=== PATIENT | male | born 1995 | race Caucasian/White ===

== ENCOUNTER 2019-09-06 11:18 | Observation (INO) | payer BC ==
--- NOTE | 2019-09-06 11:57 | EDM.PDOC ---
ED HPI GENERAL MEDICAL PROBLEM - General Chief Complaint: Chest Pain Stated Complaint: POSS A-FIB Time Seen by Provider: 09/06/19 11:21 Source of Information: Reports: Patient History Limitations: Reports: No Limitations - History of Present Illness INITIAL COMMENTS - FREE TEXT/NARRATIVE: TRIAGE NOTE -- Chest pain, pressure/squeezing, dizzyness, Hx of HTN. Pt arrived fom [facility]. Was informed that that he may have Afib fom them. Symptoms started about 30 minutes ago. Patient has had trouble from time to time with chest pain or discomfort. He says this has been for the last 3 months or so but details are quite hazy. This morning he was sitting quietly when the pain started. It was not associated with radiation, shortness of breath, or sweating but he did stand up and felt like he was going to pass out. He went to the clinic but it is not clear that his symptoms took him there. He said he went to get his antihypertensives refilled. History is not real focused per patient as to just why he went to the clinic. Patient was apparently sent directly here from the clinic. There has been no intervention prior to arrival. He is comfortable on exam. Risk factors would include cigarette smoking and hypertension. He is on 3 antihypertensives. It is not clear to him why he has this kind of hypertension. Apparently a primary care physician has put him on these antihypertensives and he has not had a cardiology work-up. Middle Anterior Chest Pain Score (Numeric/FACES): 6 - Related Data Allergies Allergy/AdvReac Type Severity Reaction Status Date / Time No Known Allergies Allergy Verified 09/06/19 11:33 Home Meds: Home Meds Lisinopril/Hydrochlorothiazide [Lisinopril-Hctz 20-25 mg Tab] 20 mg PO DAILY [History] Metoprolol Succinate 25 mg PO 09/06/19 [History] Propranolol HCl 10 mg PO 09/06/19 [History] Past Medical History HEENT History: Reports: None Cardiovascular History: Reports: Hypertension Respiratory History: Reports: None Gastrointestinal History: Reports: None Genitourinary History: Reports: None Musculoskeletal History: Reports: None Neurological History: Reports: None Psychiatric History: Reports: Anxiety Endocrine/Metabolic History: Reports: None Hematologic History: Reports: None Immunologic History: Reports: None Oncologic (Cancer) History: Reports: None Dermatologic History: Reports: None - Past Surgical History Head Surgeries/Procedures: Reports: None Social & Family History - Tobacco Use Smoking Status *Q: Current Every Day Smoker Years of Tobacco use: 7 Packs/Tins Daily: 0.5 - Caffeine Use Caffeine Use: Reports: Coffee - Recreational Drug Use Recreational Drug Use: No ED ROS GENERAL - Review of Systems Review Of Systems: Comprehensive ROS is negative, except as noted in HPI. ED EXAM, GENERAL - Physical Exam Exam: See Below Exam Limited By: No Limitations General Appearance: Alert, WD/WN, No Apparent Distress Eye Exam: Bilateral Eye: EOMI, PERRL Ears: Normal External Exam Nose: Normal Inspection Throat/Mouth: Normal Inspection Head: Atraumatic, Normocephalic Neck: Normal Inspection, Supple Respiratory/Chest: No Respiratory Distress, Lungs Clear, Normal Breath Sounds Cardiovascular: Tachycardia GI/Abdominal: Soft, Non-Tender Back Exam: Normal Inspection Extremities: Normal Inspection, Non-Tender, No Pedal Edema Neurological: Alert, Oriented, Normal Cognition Psychiatric: Normal Affect, Normal Mood Skin Exam: Warm, Dry Course - Vital Signs Last Recorded V/S: Last Vital Signs Temp 37.3 C 09/06/19 11:28 Pulse 121 H 09/06/19 11:28 Resp 15 09/06/19 11:28 BP 147/76 H 09/06/19 11:28 Pulse Ox Orthostatic Blood Pressure [ 130/76 Standing] Orthostatic Blood Pressure [ 136/76 Sitting] Orthostatic Blood Pressure [ 126/64 Supine] - Orders/Labs/Meds Orders: Active Orders 24 hr Category Date Time Status EKG Documentation Completion [RC] STAT Care 09/06/19 11:38 Active Orthostatic Vital Signs [RC] ASDIRECTED Care 09/06/19 13:39 Ordered Labs: Laboratory Tests 09/06/19 09/06/19 09/06/19 Range/Units 11:45 11:57 11:57 WBC 9.34 H (4.23-9.07) K/mm3 RBC 5.15 (4.63-6.08) M/mm3 Hgb 14.5 (13.7-17.5) gm/dl Hct 43.5 (40.1-51.0) % MCV 84.5 (79.0-92.2) fl MCH 28.2 (25.7-32.2) pg MCHC 33.3 (32.2-35.5) g/dl RDW Std Deviation 41.4 (35.1-43.9) fL Plt Count 244 (163-337) K/mm3 MPV 10.5 (9.4-12.3) fl Neutrophils % (Manual) 53 (40-60) % Band Neutrophils % 0 (0-10) % Lymphocytes % (Manual) 33 (20-40) % Atypical Lymphs % 0 % Monocytes % (Manual) 11 H (2-10) % Eosinophils % (Manual) 3 (0.8-7.0) % Basophils % (Manual) 0 L (0.2-1.2) Platelet Estimate Adequate RBC Morph Comment Normal PT 10.4 (9.7-12.0) SECONDS INR 0.95 APTT (22-31) SECONDS Sodium (136-145) mEq/L Potassium (3.5-5.1) mEq/L Chloride (98-107) mEq/L Carbon Dioxide (21-32) mEq/L Anion Gap (5-15) BUN (7-18) mg/dL Creatinine (0.7-1.3) mg/dL Est Cr Clr Drug Dosing mL/min Estimated GFR (MDRD) (>60) mL/min BUN/Creatinine Ratio (14-18) Glucose (74-106) mg/dL Calcium (8.5-10.1) mg/dL Phosphorus (2.6-4.7) mg/dL Magnesium (1.8-2.4) mg/dl Total Bilirubin (0.2-1.0) mg/dL AST (15-37) U/L ALT (16-63) U/L Alkaline Phosphatase (46-116) U/L Troponin I (0.00-0.056) ng/mL Total Protein (6.4-8.2) g/dl Albumin (3.4-5.0) g/dl Globulin gm/dL Albumin/Globulin Ratio (1-2) TSH 3rd Generation (0.358-3.74) uIU/mL Urine Opiates Screen Negative (IBTOOP=955) Ur Buprenorphine Scrn Negative (CUTOFF=10) Ur Oxycodone Screen Negative (AGJ2BW=709) Urine Methadone Screen Negative (DTB3QR=520) Ur Propoxyphene Screen Negative (ZQZUVC=676) Ur Barbiturates Screen Negative (CFJOYD=487) Ur Tricyclics Screen Negative (QMWJBP=278) Ur Phencyclidine Scrn Negative (CUTOFF=25) Ur Amphetamine Screen Negative (JCNAHU=582) U Methamphetamines Scrn Negative (XZAYEI=537) U Benzodiazepines Scrn Negative (IIDNNY=302) U Cocaine Metab Screen Negative (NRIZVS=302) U Marijuana (THC) Screen Negative (CUTOFF=50) 09/06/19 09/06/19 09/06/19 Range/Units 11:57 11:57 11:57 WBC (4.23-9.07) K/mm3 RBC (4.63-6.08) M/mm3 Hgb (13.7-17.5) gm/dl Hct (40.1-51.0) % MCV (79.0-92.2) fl MCH (25.7-32.2) pg MCHC (32.2-35.5) g/dl RDW Std Deviation (35.1-43.9) fL Plt Count (163-337) K/mm3 MPV (9.4-12.3) fl Neutrophils % (Manual) (40-60) % Band Neutrophils % (0-10) % Lymphocytes % (Manual) (20-40) % Atypical Lymphs % % Monocytes % (Manual) (2-10) % Eosinophils % (Manual) (0.8-7.0) % Basophils % (Manual) (0.2-1.2) Platelet Estimate RBC Morph Comment PT (9.7-12.0) SECONDS INR APTT 27 (22-31) SECONDS Sodium 143 (136-145) mEq/L Potassium 3.6 (3.5-5.1) mEq/L Chloride 104 (98-107) mEq/L Carbon Dioxide 26 (21-32) mEq/L Anion Gap 16.6 H (5-15) BUN 17 (7-18) mg/dL Creatinine 0.8 (0.7-1.3) mg/dL Est Cr Clr Drug Dosing 151.65 mL/min Estimated GFR (MDRD) > 60 (>60) mL/min BUN/Creatinine Ratio 21.3 H (14-18) Glucose 121 H (74-106) mg/dL Calcium 9.0 (8.5-10.1) mg/dL Phosphorus 3.4 (2.6-4.7) mg/dL Magnesium 1.6 L (1.8-2.4) mg/dl Total Bilirubin 0.3 (0.2-1.0) mg/dL AST 21 (15-37) U/L ALT 38 (16-63) U/L Alkaline Phosphatase 101 (46-116) U/L Troponin I < 0.017 (0.00-0.056) ng/mL Total Protein 7.4 (6.4-8.2) g/dl Albumin 4.0 (3.4-5.0) g/dl Globulin 3.4 gm/dL Albumin/Globulin Ratio 1.2 (1-2) TSH 3rd Generation 1.284 (0.358-3.74) uIU/mL Urine Opiates Screen (POSWMQ=807) Ur Buprenorphine Scrn (CUTOFF=10) Ur Oxycodone Screen (XEO5JC=531) Urine Methadone Screen (QYE3DP=240) Ur Propoxyphene Screen (AKYEYL=507) Ur Barbiturates Screen (NZSXGF=673) Ur Tricyclics Screen (XVBXEW=842) Ur Phencyclidine Scrn (CUTOFF=25) Ur Amphetamine Screen (FMAYOZ=303) U Methamphetamines Scrn (ZBMTBJ=137) U Benzodiazepines Scrn (LTFTCG=841) U Cocaine Metab Screen (PGZYIN=748) U Marijuana (THC) Screen (CUTOFF=50) - Re-Assessments/Exams Free Text/Narrative Re-Assessment/Exam: 09/06/19 13:36 The patient has been evaluated in the emergency department for his chest pain near syncope and tachycardia. There is no explanation for his hypertension at his early age. Laboratory evaluation is unremarkable. EKG without acute change. Chest x-ray is negative. Thyroid is normal. Drug screen is negative. The patient needs to be observed in the hospital on telemetry to be sorted out. Discussed with Dr. Rosales who will be admitting him in observation status to the hospitalist service. 09/06/19 13:40 Orthostatic blood pressures have been ordered and are being done at the time of transfer. Departure - Departure Time of Disposition: 13:37 Disposition: Refer to Observation Condition: Good Clinical Impression: Sinus tachycardia, Near syncope Chest pain Qualifiers: Chest pain type: unspecified Qualified Code(s): R07.9 - Chest pain, unspecified Hypertension Qualifiers: Hypertension type: unspecified Qualified Code(s): I10 - Essential (primary) hypertension Referrals: PCP,None [Primary Care Provider] - Forms: ED Department Discharge Sepsis Event Note - Evaluation Sepsis Screening Result: No Definite Risk - Focused Exam Vital Signs: Vital Signs Temp Pulse Resp BP 09/06/19 11:28 37.3 C 121 H 15 147/76 H Date Exam was Performed: 09/06/19 Time Exam was Performed: 13:40 - My Orders Last 24 Hours: My Active Orders 09/06/19 11:38 EKG Documentation Completion [RC] STAT 09/06/19 13:39 Orthostatic Vital Signs [RC] ASDIRECTED - Assessment/Plan Last 24 Hours: My Active Orders 09/06/19 11:38 EKG Documentation Completion [RC] STAT 09/06/19 13:39 Orthostatic Vital Signs [RC] ASDIRECTED
--- NOTE | 2019-09-06 12:02 | CR ---
Chest: Portable view of the chest was obtained. Comparison: No prior chest imaging is available. Heart size and mediastinum are normal. Lungs are clear with no acute parenchymal change. Bony structures are grossly intact. Impression: 1. Nothing acute is appreciated on portable chest x-ray. Diagnostic code #1 This report was dictated in MDT
[2019-09-06] MEDS ORDERED: Sodium Chloride 0.9% 10 ML Syringe FLUSH PRN (14:06)
[2019-09-06] MEDS ORDERED: Ondansetron 4 MG/2 ML SDV IV PRN (14:06)
--- NOTE | 2019-09-06 14:06 | PCM.HP.2 ---
H&P History of Present Illness - General Date of Service: 09/06/19 Source of Information: Patient, Old Records, Provider, RN, RN Notes Reviewed History Limitations: Reports: No Limitations - History of Present Illness Initial Comments - Free Text/Narative: Andrea Ferraro is a 23 yo male who presented to ED on 09/06/2019 with reports of chest pain, pressure/squeezing, dizziness, and possible A. fib. Patient has a history of resistant hypertension and reports that he has had A. fib in the past. He was seen at the [facility] and sent here. He reports he has had occasional chest pain on and off for some time. Reports on this instance he was sitting at home and it suddenly started. Denies any radiation, shortness of breath, or sweating. States that he attempted to get up but then felt like he was going to pass out and sat back down. Home medications include propranolol, metoprolol succinate, and lisinopril. He states that he was prescribed these by [place]. Denies any prior cardiology work-up. In the ED temp was 37.3 Celsius. Pulse 121. Respirations 15. Blood pressure 147/76. Orthostatic vital signs were negative. Labs were gained and CBC was grossly unremarkable with a WBC of 9.34. PT was 10.4 and INR 0.95. Urine drug screen was negative. aPTT was 27. Sodium 143. Potassium on the low end of normal at 3.6. Anion gap was slightly high at 16.6. BUN 17. Creatinine 0.8. GFR greater than 60. Glucose was elevated at 121. Phosphorus was 3.4. Magnesium was low at 1.6. AST was 21, ALT 37, alk phos 101. Troponin was negative at less than 0.017. Protein was 7.4. TSH was 1.284. EKG was obtained showed no signs of ischemia. Chest x-ray was normal. A history of hypertension, prior A. fib, anxiety, and daily half pack nicotine use. He does not have a primary care provider locally. He subsequently admitted to the medical floor observation status for further work-up of his resistant hypertension, tachycardia, presyncopal episode, and reported possible prior A. fib. Middle Anterior Chest Pain Score (Numeric/FACES): 6 - Related Data Allergies/Adverse Reactions: Allergies Allergy/AdvReac Type Severity Reaction Status Date / Time No Known Allergies Allergy Verified 09/06/19 15:33 Home Medications: Home Meds Metoprolol Succinate 50 mg PO DAILY 09/06/19 [History] Propranolol HCl [Propranolol] 60 mg PO DAILY 09/06/19 [History] lisinopriL [Lisinopril] 20 mg PO DAILY 09/06/19 [History] Past Medical History HEENT History: Reports: None Cardiovascular History: Reports: Hypertension Respiratory History: Reports: None Gastrointestinal History: Reports: None Genitourinary History: Reports: None Musculoskeletal History: Reports: None Neurological History: Reports: None Psychiatric History: Reports: Anxiety Endocrine/Metabolic History: Reports: None Hematologic History: Reports: None Immunologic History: Reports: None Oncologic (Cancer) History: Reports: None Dermatologic History: Reports: None - Past Surgical History Head Surgeries/Procedures: Reports: None Social & Family History - Tobacco Use Smoking Status *Q: Current Every Day Smoker Years of Tobacco use: 7 Packs/Tins Daily: 0.5 - Caffeine Use Caffeine Use: Reports: Coffee - Recreational Drug Use Recreational Drug Use: No H&P Review of Systems - Review of Systems: Review Of Systems: See Below General: Reports: No Symptoms. Denies: Fever, Chills, Malaise, Weakness, Fatigue HEENT: Reports: No Symptoms. Denies: Headaches, Sore Throat Pulmonary: Reports: No Symptoms. Denies: Shortness of Breath, Wheezing, Pleuritic Chest Pain, Cough, Sputum Cardiovascular: Reports: Blood Pressure Problem (longstanding ). Denies: Chest Pain, Palpitations, Dyspnea on Exertion, Edema, Lightheadedness, Syncope Gastrointestinal: Reports: No Symptoms. Denies: Abdominal Pain, Constipation, Diarrhea, Nausea, Vomiting Genitourinary: Reports: No Symptoms. Denies: Pain Musculoskeletal: Reports: No Symptoms Skin: Reports: No Symptoms. Denies: Cyanosis Psychiatric: Reports: No Symptoms. Denies: Confusion Neurological: Reports: Numbness (hands and feet ), Tingling (hands and feet ). Denies: Confusion, Dizziness, Headache, Pre-Existing Deficit, Seizure, Syncope, Tremors, Trouble Speaking, Difficulty Walking, Weakness, Change in Speech, Gait Disturbance Hematologic/Lymphatic: Reports: No Symptoms. Denies: Anemia Immunologic: Reports: No Symptoms Exam - Exam Exam: See Below - Vital Signs Vital Signs: Last Vital Signs Temp 99.1 F 09/06/19 11:28 Pulse 121 H 09/06/19 11:28 Resp 15 09/06/19 11:28 BP 147/76 H 09/06/19 11:28 Pulse Ox Orthostatic Blood Pressure [ 130/76 Standing] Orthostatic Blood Pressure [ 136/76 Sitting] Orthostatic Blood Pressure [ 126/64 Supine] Weight: 202 lb - Exam General: Alert, Oriented, Cooperative. No: Mild Distress HEENT: Conjunctiva Clear, EACs Clear, Hearing Intact, Mucosa Moist & [place], Posterior Pharynx Clear Neck: Supple, Trachea Midline Lungs: Clear to Auscultation, Normal Respiratory Effort Cardiovascular: Regular Rate, Regular Rhythm GI/Abdominal Exam: Normal Bowel Sounds, Soft, Non-Tender, No Distention (Male) Exam: Deferred Rectal (Males) Exam: Deferred Back Exam: Normal Inspection, Full Range of Motion Extremities: Normal Inspection, Normal Range of Motion, Non-Tender, No Pedal Edema, Normal Capillary Refill Skin: Warm, Dry, Intact Neurological: Cranial Nerves Intact (grossly ) Neuro Extensive - Mental Status: Alert, Oriented x3, Normal Mood/Affect Psychiatric: Alert, Normal Affect, Normal Mood - Patient Data Lab Results Last 24 hrs: Laboratory Results - last 24 hr 09/06/19 09/06/19 09/06/19 Range/Units 11:45 11:57 11:57 WBC 9.34 H (4.23-9.07) K/mm3 RBC 5.15 (4.63-6.08) M/mm3 Hgb 14.5 (13.7-17.5) gm/dl Hct 43.5 (40.1-51.0) % MCV 84.5 (79.0-92.2) fl MCH 28.2 (25.7-32.2) pg MCHC 33.3 (32.2-35.5) g/dl RDW Std Deviation 41.4 (35.1-43.9) fL Plt Count 244 (163-337) K/mm3 MPV 10.5 (9.4-12.3) fl Neutrophils % (Manual) 53 (40-60) % Band Neutrophils % 0 (0-10) % Lymphocytes % (Manual) 33 (20-40) % Atypical Lymphs % 0 % Monocytes % (Manual) 11 H (2-10) % Eosinophils % (Manual) 3 (0.8-7.0) % Basophils % (Manual) 0 L (0.2-1.2) Platelet Estimate Adequate RBC Morph Comment Normal PT 10.4 (9.7-12.0) SECONDS INR 0.95 APTT (22-31) SECONDS Sodium (136-145) mEq/L Potassium (3.5-5.1) mEq/L Chloride (98-107) mEq/L Carbon Dioxide (21-32) mEq/L Anion Gap (5-15) BUN (7-18) mg/dL Creatinine (0.7-1.3) mg/dL Est Cr Clr Drug Dosing mL/min Estimated GFR (MDRD) (>60) mL/min BUN/Creatinine Ratio (14-18) Glucose (74-106) mg/dL Calcium (8.5-10.1) mg/dL Phosphorus (2.6-4.7) mg/dL Magnesium (1.8-2.4) mg/dl Total Bilirubin (0.2-1.0) mg/dL AST (15-37) U/L ALT (16-63) U/L Alkaline Phosphatase (46-116) U/L Troponin I (0.00-0.056) ng/mL Total Protein (6.4-8.2) g/dl Albumin (3.4-5.0) g/dl Globulin gm/dL Albumin/Globulin Ratio (1-2) TSH 3rd Generation (0.358-3.74) uIU/mL Urine Opiates Screen Negative (HOQKXF=299) Ur Buprenorphine Scrn Negative (CUTOFF=10) Ur Oxycodone Screen Negative (NWO9GB=697) Urine Methadone Screen Negative (TSA0UZ=323) Ur Propoxyphene Screen Negative (GXJTEU=480) Ur Barbiturates Screen Negative (FQLOEZ=978) Ur Tricyclics Screen Negative (UBEVRJ=583) Ur Phencyclidine Scrn Negative (CUTOFF=25) Ur Amphetamine Screen Negative (AFTYAC=213) U Methamphetamines Scrn Negative (YALCLF=762) U Benzodiazepines Scrn Negative (XNMBFM=133) U Cocaine Metab Screen Negative (UXRABQ=189) U Marijuana (THC) Screen Negative (CUTOFF=50) 09/06/19 09/06/19 09/06/19 Range/Units 11:57 11:57 11:57 WBC (4.23-9.07) K/mm3 RBC (4.63-6.08) M/mm3 Hgb (13.7-17.5) gm/dl Hct (40.1-51.0) % MCV (79.0-92.2) fl MCH (25.7-32.2) pg MCHC (32.2-35.5) g/dl RDW Std Deviation (35.1-43.9) fL Plt Count (163-337) K/mm3 MPV (9.4-12.3) fl Neutrophils % (Manual) (40-60) % Band Neutrophils % (0-10) % Lymphocytes % (Manual) (20-40) % Atypical Lymphs % % Monocytes % (Manual) (2-10) % Eosinophils % (Manual) (0.8-7.0) % Basophils % (Manual) (0.2-1.2) Platelet Estimate RBC Morph Comment PT (9.7-12.0) SECONDS INR APTT 27 (22-31) SECONDS Sodium 143 (136-145) mEq/L Potassium 3.6 (3.5-5.1) mEq/L Chloride 104 (98-107) mEq/L Carbon Dioxide 26 (21-32) mEq/L Anion Gap 16.6 H (5-15) BUN 17 (7-18) mg/dL Creatinine 0.8 (0.7-1.3) mg/dL Est Cr Clr Drug Dosing 151.65 mL/min Estimated GFR (MDRD) > 60 (>60) mL/min BUN/Creatinine Ratio 21.3 H (14-18) Glucose 121 H (74-106) mg/dL Calcium 9.0 (8.5-10.1) mg/dL Phosphorus 3.4 (2.6-4.7) mg/dL Magnesium 1.6 L (1.8-2.4) mg/dl Total Bilirubin 0.3 (0.2-1.0) mg/dL AST 21 (15-37) U/L ALT 38 (16-63) U/L Alkaline Phosphatase 101 (46-116) U/L Troponin I < 0.017 (0.00-0.056) ng/mL Total Protein 7.4 (6.4-8.2) g/dl Albumin 4.0 (3.4-5.0) g/dl Globulin 3.4 gm/dL Albumin/Globulin Ratio 1.2 (1-2) TSH 3rd Generation 1.284 (0.358-3.74) uIU/mL Urine Opiates Screen (YVLRQV=294) Ur Buprenorphine Scrn (CUTOFF=10) Ur Oxycodone Screen (MOZ9ZX=400) Urine Methadone Screen (DLH3YR=497) Ur Propoxyphene Screen (BVAQGP=054) Ur Barbiturates Screen (ZYZSTP=611) Ur Tricyclics Screen (JNFHOK=030) Ur Phencyclidine Scrn (CUTOFF=25) Ur Amphetamine Screen (BGWFTN=079) U Methamphetamines Scrn (LFCYCP=063) U Benzodiazepines Scrn (UFCERY=350) U Cocaine Metab Screen (EDIHYM=377) U Marijuana (THC) Screen (CUTOFF=50) Result Diagrams: 09/07/19 04:42 09/07/19 04:42 Sepsis Event Note - Evaluation Sepsis Screening Result: No Definite Risk - Focused Exam Vital Signs: Vital Signs Temp Pulse Resp BP 09/06/19 11:28 99.1 F 121 H 15 147/76 H Date Exam was Performed: 09/07/19 Time Exam was Performed: 07:51 - Problem List (1) History of atrial fibrillation SNOMED Code(s): 217545411 ICD Code: Z86.79 - PERSONAL HISTORY OF OTHER DISEASES OF THE CIRCULATORY SYSTEM Status: Chronic Priority: High Current Visit: Yes (2) Resistant hypertension SNOMED Code(s): 72403085 ICD Code: I10 - ESSENTIAL (PRIMARY) HYPERTENSION Status: Chronic Priority : High Current Visit: Yes (3) Current nicotine use SNOMED Code(s): 178552030 ICD Code: Z72.0 - TOBACCO USE Status: Chronic Priority: Medium Current Visit: Yes (4) Anxiety SNOMED Code(s): 39148758 ICD Code: F41.9 - ANXIETY DISORDER, UNSPECIFIED Status: Chronic Priority : Medium Current Visit: No (5) Chest pain SNOMED Code(s): 38353843 ICD Code: R07.9 - CHEST PAIN, UNSPECIFIED Status: Resolved Priority: Medium Current Visit: Yes Qualifiers: Chest pain type: unspecified Qualified Code(s): R07.9 - Chest pain, unspecified (6) Near syncope SNOMED Code(s): 912616022 ICD Code: R55 - SYNCOPE AND COLLAPSE Status: Acute Priority: High Current Visit: Yes (7) Hypomagnesemia SNOMED Code(s): 921669534 ICD Code: E83.42 - HYPOMAGNESEMIA Status: Acute Priority: High Current Visit: Yes Problem List Initiated/Reviewed/Updated: Yes Orders Last 24hrs: Active Orders 24 hr Category Date Time Status EKG Documentation Completion [RC] STAT Care 09/06/19 11:38 Active Orthostatic Vital Signs [RC] ASDIRECTED Care 09/06/19 13:39 Active Assessment/Plan Comment:: History of atrial fibrillation Chest pain Near syncope Resistant hypertension Hypomagnesemia Presented to ED with chest pain and suspected A-fib, near syncope Reports history of A-fib but unable to provide details On Metoprolol succinate, propranolol, lisinopril Unsure why on 2 beta blockers NSR on ED 12-lead EKG BP stable in ED Asymptomatic when brought to floor PLAN - Attempt to obtain old records - Telemetry to monitor for arrhythmias - Supplement magnesium and monitor electrolytes - Hold propranolol, switch metoprolol to tartrate and give 12.5mg BID, Give lisinopril in PM - Urine 24 hr metanephrines, Creatinine, sodium, aldosterone, aldosterone/renin ratio, catecholamines, a.m. plasma renin activity - NPO after midnight - Renal artery ultrasound - Echocardiogram - Monitor vital signs - Will need to establish PCP locally Current nicotine use 1/2 pack a day smoker PLAN - Nicotine patch - Cessation counseling Anxiety Not on any medications PLAN -Monitor DVT Prophylaxis: Ambulate (VTE score of 1) GI Prophylaxis: Not indicated CODE STATUS: Full Code PCP: None - will need to establish DISPOSITION: Admitted to medical floor on telemetry for presyncopal work-up and work-up for resistant hypertension. Anticipated length of stay less than 2 overnights. - Mortality Measure Prognosis:: Good
[2019-09-06] MEDS ORDERED: Magnesium Sulfate/Water 2 GM in Premix Bag 1 BAG IV ONE (14:12)
[2019-09-06] MEDS: Acetaminophen 325 MG Tab PO PRN (16:03)
[2019-09-06] MEDS ORDERED: FLU Vacc QS2019-20(6MOS+)/PF 60 MCG/0.5 ML SYRINGE IM ONE (18:00)
[2019-09-07] MEDS: Acetaminophen 325 MG Tab PO PRN ×2 (00:14→05:28)
--- NOTE | 2019-09-07 07:55 | PCM.PN ---
Addendum entered and electronically signed by Alejandro Celaya PA-C 09/07/19 16:43 : Echo obtained 09/07/2019 shows: 1. LVEF, by visual estimation, is 65 to 70%. 2. No evidence of left ventricular hypertrophy. 3. Normal pattern of LV diastolic filling. 4. Trace mitral valve regurgitation. 5. Mild tricuspid valve regurgitation. Original Note: <Alejandro Celaya - Last Filed: 09/07/19 13:21> - General Info Date of Service: 09/07/19 Functional Status: Reports: Pain Controlled, Ambulating, Urinating. Denies: Tolerating Diet (NPO), New Symptoms - Review of Systems General: Reports: No Symptoms. Denies: Fever, Weakness, Fatigue, Malaise, Chills HEENT: Reports: No Symptoms. Denies: Eye Pain, Headaches Pulmonary: Reports: No Symptoms. Denies: Shortness of Breath, Pleuritic Chest Pain, Cough, Sputum, Hemoptysis, Wheezing Cardiovascular: Reports: No Symptoms. Denies: Chest Pain, Palpitations, Edema Gastrointestinal: Reports: Abdominal Pain (substernal chronic - no improvement with GI cocktail ). Denies: Constipation, Diarrhea, Nausea, Vomiting Genitourinary: Reports: No Symptoms. Denies: Pain Musculoskeletal: Reports: No Symptoms Skin: Reports: No Symptoms. Denies: Cyanosis Neurological: Reports: No Symptoms. Denies: Confusion, Difficulty Walking, Weakness, Gait Disturbance Psychiatric: Reports: No Symptoms - Patient Data Vitals - Most Recent: Last Vital Signs Temp 97.5 F 09/07/19 05:20 Pulse 66 09/07/19 05:20 Resp 18 09/07/19 05:20 BP 133/64 09/07/19 05:20 Pulse Ox 99 09/07/19 05:20 Orthostatic Blood Pressure [ 130/76 Standing] Orthostatic Blood Pressure [ 136/76 Sitting] Orthostatic Blood Pressure [ 126/64 Supine] Weight - Most Recent: 91.626 kg I&O - Last 24 Hours: Intake & Output 09/06/19 09/07/19 09/07/19 22:59 06:59 14:59 Intake Total 50 300 Output Total 725 Balance 50 -425 Lab Results Last 24 Hours: Laboratory Results - last 24 hr 04/29/20 04/29/20 04/29/20 Range/Units 11:45 11:45 11:57 WBC 9.34 H (4.23-9.07) K/mm3 RBC 5.15 (4.63-6.08) M/mm3 Hgb 14.5 (13.7-17.5) gm/dl Hct 43.5 (40.1-51.0) % MCV 84.5 (79.0-92.2) fl MCH 28.2 (25.7-32.2) pg MCHC 33.3 (32.2-35.5) g/dl RDW Std Deviation 41.4 (35.1-43.9) fL Plt Count 244 (163-337) K/mm3 MPV 10.5 (9.4-12.3) fl Neut % (Auto) (34.0-67.9) % Lymph % (Auto) (21.8-53.1) % [place] % (Auto) (5.3-12.2) % Eos % (Auto) (0.8-7.0) Baso % (Auto) (0.1-1.2) % Neut # (Auto) (1.78-5.38) K/mm3 Lymph # (Auto) (1.32-3.57) K/mm3 [place] # (Auto) (0.30-0.82) K/mm3 Eos # (Auto) (0.04-0.54) K/mm3 Baso # (Auto) (0.01-0.08) K/mm3 Neutrophils % (Manual) 53 (40-60) % Band Neutrophils % 0 (0-10) % Lymphocytes % (Manual) 33 (20-40) % Atypical Lymphs % 0 % Monocytes % (Manual) 11 H (2-10) % Eosinophils % (Manual) 3 (0.8-7.0) % Basophils % (Manual) 0 L (0.2-1.2) Platelet Estimate Adequate RBC Morph Comment Normal PT (9.7-12.0) SECONDS INR APTT (22-31) SECONDS Sodium (136-145) mEq/L Potassium (3.5-5.1) mEq/L Chloride (98-107) mEq/L Carbon Dioxide (21-32) mEq/L Anion Gap (5-15) BUN (7-18) mg/dL Creatinine (0.7-1.3) mg/dL Est Cr Clr Drug Dosing mL/min Estimated GFR (MDRD) (>60) mL/min BUN/Creatinine Ratio (14-18) Glucose (74-106) mg/dL Uric Acid (3.5-7.2) mg/dL Calcium (8.5-10.1) mg/dL Phosphorus (2.6-4.7) mg/dL Magnesium (1.8-2.4) mg/dl Total Bilirubin (0.2-1.0) mg/dL AST (15-37) U/L ALT (16-63) U/L Alkaline Phosphatase (46-116) U/L Troponin I (0.00-0.056) ng/mL Total Protein (6.4-8.2) g/dl Albumin (3.4-5.0) g/dl Globulin gm/dL Albumin/Globulin Ratio (1-2) TSH 3rd Generation (0.358-3.74) uIU/mL Urine Color Yellow (Yellow) Urine Appearance Cloudy H (Clear) Urine pH 7.5 (5.0-8.0) Ur Specific [place] 1.025 (1.005-1.030) Urine Protein Trace H (Negative) Urine Glucose (UA) Negative (Negative) Urine Ketones Negative (Negative) Urine Occult Blood Negative (Negative) Urine Nitrite Negative (Negative) Urine Bilirubin Negative (Negative) Urine Urobilinogen 0.2 (0.2-1.0) Ur Leukocyte Esterase Negative (Negative) Urine RBC Not seen (0-5) /hpf Urine WBC 5-10 H (0-5) /hpf Ur Squamous Epith Cells 30-40 H (0-5) /hpf Urine Bacteria Rare (FEW) /hpf Urine Mucus Rare (FEW) /hpf Urine Opiates Screen Negative (JJOKVX=478) Ur Buprenorphine Scrn Negative (CUTOFF=10) Ur Oxycodone Screen Negative (TMK2AP=927) Urine Methadone Screen Negative (FYX0MN=678) Ur Propoxyphene Screen Negative (VTJCIK=927) Ur Barbiturates Screen Negative (THWQAB=199) Ur Tricyclics Screen Negative (MTYSVH=328) Ur Phencyclidine Scrn Negative (CUTOFF=25) Ur Amphetamine Screen Negative (ZURDKX=412) U Methamphetamines Scrn Negative (ATEIHC=172) U Benzodiazepines Scrn Negative (ZMAFAM=818) U Cocaine Metab Screen Negative (HJNFDT=238) U Marijuana (THC) Screen Negative (CUTOFF=50) 09/06/19 09/06/19 09/06/19 Range/Units 11:57 11:57 11:57 WBC (4.23-9.07) K/mm3 RBC (4.63-6.08) M/mm3 Hgb (13.7-17.5) gm/dl Hct (40.1-51.0) % MCV (79.0-92.2) fl MCH (25.7-32.2) pg MCHC (32.2-35.5) g/dl RDW Std Deviation (35.1-43.9) fL Plt Count (163-337) K/mm3 MPV (9.4-12.3) fl Neut % (Auto) (34.0-67.9) % Lymph % (Auto) (21.8-53.1) % [place] % (Auto) (5.3-12.2) % Eos % (Auto) (0.8-7.0) Baso % (Auto) (0.1-1.2) % Neut # (Auto) (1.78-5.38) K/mm3 Lymph # (Auto) (1.32-3.57) K/mm3 [place] # (Auto) (0.30-0.82) K/mm3 Eos # (Auto) (0.04-0.54) K/mm3 Baso # (Auto) (0.01-0.08) K/mm3 Neutrophils % (Manual) (40-60) % Band Neutrophils % (0-10) % Lymphocytes % (Manual) (20-40) % Atypical Lymphs % % Monocytes % (Manual) (2-10) % Eosinophils % (Manual) (0.8-7.0) % Basophils % (Manual) (0.2-1.2) Platelet Estimate RBC Morph Comment PT 10.4 (9.7-12.0) SECONDS INR 0.95 APTT 27 (22-31) SECONDS Sodium 143 (136-145) mEq/L Potassium 3.6 (3.5-5.1) mEq/L Chloride 104 (98-107) mEq/L Carbon Dioxide 26 (21-32) mEq/L Anion Gap 16.6 H (5-15) BUN 17 (7-18) mg/dL Creatinine 0.8 (0.7-1.3) mg/dL Est Cr Clr Drug Dosing 151.65 mL/min Estimated GFR (MDRD) > 60 (>60) mL/min BUN/Creatinine Ratio 21.3 H (14-18) Glucose 121 H (74-106) mg/dL Uric Acid (3.5-7.2) mg/dL Calcium 9.0 (8.5-10.1) mg/dL Phosphorus (2.6-4.7) mg/dL Magnesium 1.6 L (1.8-2.4) mg/dl Total Bilirubin 0.3 (0.2-1.0) mg/dL AST 21 (15-37) U/L ALT 38 (16-63) U/L Alkaline Phosphatase 101 (46-116) U/L Troponin I < 0.017 (0.00-0.056) ng/mL Total Protein 7.4 (6.4-8.2) g/dl Albumin 4.0 (3.4-5.0) g/dl Globulin 3.4 gm/dL Albumin/Globulin Ratio 1.2 (1-2) TSH 3rd Generation 1.284 (0.358-3.74) uIU/mL Urine Color (Yellow) Urine Appearance (Clear) Urine pH (5.0-8.0) Ur Specific [place] (1.005-1.030) Urine Protein (Negative) Urine Glucose (UA) (Negative) Urine Ketones (Negative) Urine Occult Blood (Negative) Urine Nitrite (Negative) Urine Bilirubin (Negative) Urine Urobilinogen (0.2-1.0) Ur Leukocyte Esterase (Negative) Urine RBC (0-5) /hpf Urine WBC (0-5) /hpf Ur Squamous Epith Cells (0-5) /hpf Urine Bacteria (FEW) /hpf Urine Mucus (FEW) /hpf Urine Opiates Screen (ZDJBJU=246) Ur Buprenorphine Scrn (CUTOFF=10) Ur Oxycodone Screen (VLH6AG=611) Urine Methadone Screen (UVH2TJ=835) Ur Propoxyphene Screen (INRQOL=598) Ur Barbiturates Screen (EHUDAX=732) Ur Tricyclics Screen (OZBZJB=903) Ur Phencyclidine Scrn (CUTOFF=25) Ur Amphetamine Screen (SPDIKG=974) U Methamphetamines Scrn (NJFLYX=934) U Benzodiazepines Scrn (YDDUKL=385) U Cocaine Metab Screen (NATKDL=607) U Marijuana (THC) Screen (CUTOFF=50) 09/06/19 09/06/19 09/07/19 Range/Units 11:57 11:57 04:42 WBC 9.21 H (4.23-9.07) K/mm3 RBC 5.33 (4.63-6.08) M/mm3 Hgb 15.2 (13.7-17.5) gm/dl Hct 45.7 (40.1-51.0) % MCV 85.7 (79.0-92.2) fl MCH 28.5 (25.7-32.2) pg MCHC 33.3 (32.2-35.5) g/dl RDW Std Deviation 42.6 (35.1-43.9) fL Plt Count 222 (163-337) K/mm3 MPV 10.9 (9.4-12.3) fl Neut % (Auto) 62.0 (34.0-67.9) % Lymph % (Auto) 25.2 (21.8-53.1) % [place] % (Auto) 8.3 (5.3-12.2) % Eos % (Auto) 3.5 (0.8-7.0) Baso % (Auto) 0.5 (0.1-1.2) % Neut # (Auto) 5.71 H (1.78-5.38) K/mm3 Lymph # (Auto) 2.32 (1.32-3.57) K/mm3 [place] # (Auto) 0.76 (0.30-0.82) K/mm3 Eos # (Auto) 0.32 (0.04-0.54) K/mm3 Baso # (Auto) 0.05 (0.01-0.08) K/mm3 Neutrophils % (Manual) (40-60) % Band Neutrophils % (0-10) % Lymphocytes % (Manual) (20-40) % Atypical Lymphs % % Monocytes % (Manual) (2-10) % Eosinophils % (Manual) (0.8-7.0) % Basophils % (Manual) (0.2-1.2) Platelet Estimate RBC Morph Comment PT (9.7-12.0) SECONDS INR APTT (22-31) SECONDS Sodium (136-145) mEq/L Potassium (3.5-5.1) mEq/L Chloride (98-107) mEq/L Carbon Dioxide (21-32) mEq/L Anion Gap (5-15) BUN (7-18) mg/dL Creatinine (0.7-1.3) mg/dL Est Cr Clr Drug Dosing mL/min Estimated GFR (MDRD) (>60) mL/min BUN/Creatinine Ratio (14-18) Glucose (74-106) mg/dL Uric Acid 5.4 (3.5-7.2) mg/dL Calcium (8.5-10.1) mg/dL Phosphorus 3.4 (2.6-4.7) mg/dL Magnesium (1.8-2.4) mg/dl Total Bilirubin (0.2-1.0) mg/dL AST (15-37) U/L ALT (16-63) U/L Alkaline Phosphatase (46-116) U/L Troponin I (0.00-0.056) ng/mL Total Protein (6.4-8.2) g/dl Albumin (3.4-5.0) g/dl Globulin gm/dL Albumin/Globulin Ratio (1-2) TSH 3rd Generation (0.358-3.74) uIU/mL Urine Color (Yellow) Urine Appearance (Clear) Urine pH (5.0-8.0) Ur Specific [place] (1.005-1.030) Urine Protein (Negative) Urine Glucose (UA) (Negative) Urine Ketones (Negative) Urine Occult Blood (Negative) Urine Nitrite (Negative) Urine Bilirubin (Negative) Urine Urobilinogen (0.2-1.0) Ur Leukocyte Esterase (Negative) Urine RBC (0-5) /hpf Urine WBC (0-5) /hpf Ur Squamous Epith Cells (0-5) /hpf Urine Bacteria (FEW) /hpf Urine Mucus (FEW) /hpf Urine Opiates Screen (CQDSFI=064) Ur Buprenorphine Scrn (CUTOFF=10) Ur Oxycodone Screen (FRF3JY=186) Urine Methadone Screen (TMX8HL=968) Ur Propoxyphene Screen (AWNMRL=731) Ur Barbiturates Screen (GUIRZP=165) Ur Tricyclics Screen (FHPXHC=483) Ur Phencyclidine Scrn (CUTOFF=25) Ur Amphetamine Screen (VMWXRY=612) U Methamphetamines Scrn (VDCVJC=382) U Benzodiazepines Scrn (YVATKA=537) U Cocaine Metab Screen (FNROCP=210) U Marijuana (THC) Screen (CUTOFF=50) 09/07/19 Range/Units 04:42 WBC (4.23-9.07) K/mm3 RBC (4.63-6.08) M/mm3 Hgb (13.7-17.5) gm/dl Hct (40.1-51.0) % MCV (79.0-92.2) fl MCH (25.7-32.2) pg MCHC (32.2-35.5) g/dl RDW Std Deviation (35.1-43.9) fL Plt Count (163-337) K/mm3 MPV (9.4-12.3) fl Neut % (Auto) (34.0-67.9) % Lymph % (Auto) (21.8-53.1) % [place] % (Auto) (5.3-12.2) % Eos % (Auto) (0.8-7.0) Baso % (Auto) (0.1-1.2) % Neut # (Auto) (1.78-5.38) K/mm3 Lymph # (Auto) (1.32-3.57) K/mm3 [place] # (Auto) (0.30-0.82) K/mm3 Eos # (Auto) (0.04-0.54) K/mm3 Baso # (Auto) (0.01-0.08) K/mm3 Neutrophils % (Manual) (40-60) % Band Neutrophils % (0-10) % Lymphocytes % (Manual) (20-40) % Atypical Lymphs % % Monocytes % (Manual) (2-10) % Eosinophils % (Manual) (0.8-7.0) % Basophils % (Manual) (0.2-1.2) Platelet Estimate RBC Morph Comment PT (9.7-12.0) SECONDS INR APTT (22-31) SECONDS Sodium 141 (136-145) mEq/L Potassium 4.0 (3.5-5.1) mEq/L Chloride 103 (98-107) mEq/L Carbon Dioxide 26 (21-32) mEq/L Anion Gap 16.0 H (5-15) BUN 16 (7-18) mg/dL Creatinine 0.7 (0.7-1.3) mg/dL Est Cr Clr Drug Dosing 173.31 mL/min Estimated GFR (MDRD) > 60 (>60) mL/min BUN/Creatinine Ratio 22.9 H (14-18) Glucose 98 (74-106) mg/dL Uric Acid (3.5-7.2) mg/dL Calcium 8.7 (8.5-10.1) mg/dL Phosphorus (2.6-4.7) mg/dL Magnesium 1.9 (1.8-2.4) mg/dl Total Bilirubin 0.5 (0.2-1.0) mg/dL AST 23 (15-37) U/L ALT 39 (16-63) U/L Alkaline Phosphatase 104 (46-116) U/L Troponin I (0.00-0.056) ng/mL Total Protein 7.6 (6.4-8.2) g/dl Albumin 4.2 (3.4-5.0) g/dl Globulin 3.4 gm/dL Albumin/Globulin Ratio 1.2 (1-2) TSH 3rd Generation (0.358-3.74) uIU/mL Urine Color (Yellow) Urine Appearance (Clear) Urine pH (5.0-8.0) Ur Specific [place] (1.005-1.030) Urine Protein (Negative) Urine Glucose (UA) (Negative) Urine Ketones (Negative) Urine Occult Blood (Negative) Urine Nitrite (Negative) Urine Bilirubin (Negative) Urine Urobilinogen (0.2-1.0) Ur Leukocyte Esterase (Negative) Urine RBC (0-5) /hpf Urine WBC (0-5) /hpf Ur Squamous Epith Cells (0-5) /hpf Urine Bacteria (FEW) /hpf Urine Mucus (FEW) /hpf Urine Opiates Screen (CIKMWP=292) Ur Buprenorphine Scrn (CUTOFF=10) Ur Oxycodone Screen (TAT9EP=293) Urine Methadone Screen (QUG4TI=403) Ur Propoxyphene Screen (IVHEDS=596) Ur Barbiturates Screen (JIBXWB=142) Ur Tricyclics Screen (KYAMOM=737) Ur Phencyclidine Scrn (CUTOFF=25) Ur Amphetamine Screen (TIGXAE=771) U Methamphetamines Scrn (SZOQOD=746) U Benzodiazepines Scrn (AEQOQV=943) U Cocaine Metab Screen (LSIIML=524) U Marijuana (THC) Screen (CUTOFF=50) Med Orders - Current: Current Medications Acetaminophen (Tylenol) 650 mg PO Q4H PRN PRN Reason: Pain (Mild 1-3)/fever Last Admin: 09/07/19 05:28 Dose: 650 mg Lisinopril (Prinivil) 20 mg PO BEDTIME [facility] Metoprolol Tartrate (Lopressor) 12.5 mg PO Q12H [facility] Miscellaneous Information (Remove Patch) 0 ea TRDERM Q24H NELLI Nicotine (Habitrol) 14 mg TRDERM DAILY [facility] Ondansetron HCl (Zofran) 4 mg IV Q6H PRN PRN Reason: Nausea/Vomiting Sodium Chloride (Saline Flush) 10 ml FLUSH ASDIRECTED PRN PRN Reason: Keep Vein Open Discontinued Medications Magnesium Sulfate 2 gm/ Premix 50 mls @ 25 mls/hr IV ONETIME ONE Stop: 09/06/19 16:11 Last Admin: 09/06/19 16:05 Dose: 25 mls/hr Influenza Virus Vaccine (Pharmacy To Dose - Influenza Vaccine) 0 each IM ONETIME ONE Stop: 09/06/19 16:33 Influenza Virus Vaccine (Fluzone Quad [id number] Syringe) 60 mcg IM .ONCE ONE Stop: 09/06/19 18:01 Lisinopril (Prinivil) 20 mg PO DAILY [facility] Metoprolol Succinate (Toprol Xl) 50 mg PO DAILY NELLI - Exam Quality Assessment: DVT Prophylaxis General: Alert, Oriented, Cooperative, No Acute Distress HEENT: Pupils Equal, Pupils Reactive, Mucous Membr. Moist/[place] Neck: Supple, Trachea Midline Lungs: Clear to Auscultation, Normal Respiratory Effort, Other (? Gynecomastia ) Cardiovascular: Regular Rate, Regular Rhythm GI/Abdominal Exam: Normal Bowel Sounds, Soft, Non-Tender, No Distention, No Abnormal Bruit (Male) Exam: Deferred Back Exam: Normal Inspection, Full Range of Motion Extremities: Normal Inspection, Normal Range of Motion, Non-Tender, No Pedal Edema, Normal Capillary Refill Skin: Warm, Dry, Intact Neurological: No New Focal Deficit Psy/Mental Status: Alert, Normal Affect, Normal Mood Sepsis Event Note - Evaluation Sepsis Screening Result: No Definite Risk - Focused Exam Vital Signs: Vital Signs Temp Pulse Resp BP Pulse Ox 09/07/19 05:20 97.5 F 66 18 133/64 99 09/07/19 00:06 98.1 F 88 16 120/75 99 09/06/19 20:54 97.9 F 79 18 125/74 97 Date Exam was Performed: 09/07/19 Time Exam was Performed: 13:21 - Problem List & Annotations (1) History of atrial fibrillation SNOMED Code(s): 980903265 Code(s): Z86.79 - PERSONAL HISTORY OF OTHER DISEASES OF THE CIRCULATORY SYSTEM Status: Chronic Priority: High Current Visit: Yes (2) Resistant hypertension SNOMED Code(s): 60492482 Code(s): I10 - ESSENTIAL (PRIMARY) HYPERTENSION Status: Chronic Priority : High Current Visit: Yes (3) Current nicotine use SNOMED Code(s): 294425494 Code(s): Z72.0 - TOBACCO USE Status: Chronic Priority: Medium Current Visit: Yes (4) Anxiety SNOMED Code(s): 11281722 Code(s): F41.9 - ANXIETY DISORDER, UNSPECIFIED Status: Chronic Priority: Medium Current Visit: No (5) Chest pain SNOMED Code(s): 69127129 Code(s): R07.9 - CHEST PAIN, UNSPECIFIED Status: Resolved Priority: Medium Current Visit: Yes Qualifiers: Chest pain type: unspecified Qualified Code(s): R07.9 - Chest pain, unspecified (6) Near syncope SNOMED Code(s): 471078499 Code(s): R55 - SYNCOPE AND COLLAPSE Status: Acute Priority: High Current Visit: Yes (7) Hypomagnesemia SNOMED Code(s): 147752425 Code(s): E83.42 - HYPOMAGNESEMIA Status: Acute Priority: High Current Visit: Yes (8) Hyperlipidemia SNOMED Code(s): 90053531 Code(s): E78.5 - HYPERLIPIDEMIA, UNSPECIFIED Status: Acute Priority: High Current Visit: Yes Qualifiers: Hyperlipidemia type: unspecified Qualified Code(s): E78.5 - Hyperlipidemia , unspecified - Problem List Review Problem List Initiated/Reviewed/Updated: Yes - My Orders Last 24 Hours: My Active Orders 09/06/19 14:06 Height and Weight [RC] 04 Up ad Bettye [RC] BID Acetaminophen [Tylenol] 650 mg PO Q4H PRN Ondansetron [Zofran] 4 mg IV Q6H PRN Sodium Chloride 0.9% [Saline Flush] 10 ml FLUSH ASDIRECTED PRN Saline Lock Insert [OM.PC] Routine Resuscitation Status Routine 09/06/19 14:07 Oxygen Therapy [RC] PRN VTE/DVT Education [RC] PER UNIT ROUTINE Vital Signs [RC] Q4HR 09/06/19 14:08 Cardiac Monitoring [RC] CONTINUOUS Intake and Output [RC] 04,16 Pulse Oximetry [RC] PRN 09/06/19 14:25 CREATININE,URINE 24HR [URCHEM] Stat SODIUM,URINE 24HR [URCHEM] Stat 09/06/19 14:29 CATECHOLAMINES,UR.,FREE,24 HR Routine METANEPHRINES, FRAC, QN, 24-HR Routine 09/06/19 14:58 Patient Status [ADT] Routine 09/07/19 04:42 ALDOSTERONE/RENIN RATIO [REF] Routine RENIN ACTIVITY, PLASMA [REF] Routine 09/07/19 05:11 ALDOSTERONE [REF] AM ALDOSTERONE, URINE Routine 09/07/19 07:45 Metoprolol Tartrate [Lopressor] 12.5 mg PO Q12H 09/07/19 08:00 Art Heriberto Duplex Renal Ltd [US] Stat Echo Comp wo Cont [US] Routine 09/07/19 09:00 Nicotine [Habitrol] 14 mg TRDERM DAILY 09/07/19 21:00 lisinopriL [Prinivil] 20 mg PO BEDTIME 09/08/19 05:11 COMPREHENSIVE METABOLIC PN,CMP [CHEM] AM MAGNESIUM [CHEM] AM PHOSPHORUS [CHEM] AM 09/08/19 09:00 Remove Patch 0 ea TRDERM Q24H - Plan Plan:: Day of admission: Presented to ED with chest pain and near syncope History of resistant HTN on 3 medications, Reported A-fib Asymptomatic when evaluated in ED and on floor VS stable No ectopy on monitor Admitted observation status for near syncope work-up, resistant HTN workup. Day 1: Continues to feel goo Reporting substernal chest pain that "Has been present for a long time": GI cocktail ordered Lipid panel shows high LDL, normal triglycerides and HDL Last VS stable Adjusted home medications Awaiting urine results Magnesium supplemented Renal artery US normal History of atrial fibrillation Chest pain Near syncope Resistant hypertension Hypomagnesemia - Resolved Presented to ED with chest pain and suspected A-fib, near syncope Reports history of A-fib but unable to provide details On Metoprolol succinate, propranolol, lisinopril Unsure why on 2 beta blockers NSR on ED 12-lead EKG A1C 5.70% BP stable in ED Asymptomatic when brought to floor HR 88-66 today; BP 133-120/76-64 today Renal ultrasound shows no abnormalities PLAN - Attempt to obtain old records - Telemetry to monitor for arrhythmias - Monitor electrolytes - Hold propranolol, switch metoprolol to tartrate and give 12.5mg BID, Give lisinopril in PM - Urine 24 hr metanephrines, Creatinine, sodium, aldosterone, aldosterone/renin ratio, catecholamines, a.m. plasma renin activity - NPO after midnight - Monitor vital signs - Will need to establish PCP locally - Prolactin to r/o gynecomastia Hyperlipidemia Lipid panel: Triglycerides 115, total cholesterol 236, LDL 167, HDL 44 PLAN - Stress lifestyle changes - [employer] Investigation Supervisor consult Current nicotine use 1/2 pack a day smoker PLAN - Nicotine patch - Cessation counseling Anxiety Not on any medications PLAN - Monitor - Outpatient counseling - Consider psychiatry DVT Prophylaxis: Ambulate (VTE score of 1) GI Prophylaxis: Not indicated CODE STATUS: Full Code PCP: None - will need to establish DISPOSITION: Admitted to medical floor on telemetry for presyncopal work-up and work-up for resistant hypertension. Anticipated length of stay less than 2 overnights. <Tanna Flower - Last Filed: 09/09/19 07:22> Sepsis Event Note - Focused Exam Vital Signs: Vital Signs Temp Pulse Resp BP Pulse Ox 09/09/19 04:20 97.9 F 80 12 134/76 100 09/08/19 21:16 128/79 09/08/19 20:12 97.5 F 98 99 09/08/19 20:10 104 H 16 128/79 99 Date Exam was Performed: 09/09/19 Time Exam was Performed: 07:19 - Plan Plan:: Uncontrolled hypertension Echocardiogram reported normal Renal US normal Doppler of renal arteries negative for stenosis PLAN - F/U on records - Metoprolol 12.5 BID - Lisinopril in PM - F/U workup
[2019-09-07] MEDS: Metoprolol Tartrate 25 MG Tab PO SCH ×2 (08:15→20:42)
[2019-09-07] MEDS: Nicotine 14 MG/24 Hr Patch TRDERM SCH (08:16)
[2019-09-07] MEDS ORDERED: Lisinopril 20 MG Tab PO SCH (09:00)
[2019-09-07] MEDS ORDERED: Metoprolol Succinate 50 MG Tab.ER PO SCH (09:00)
--- NOTE | 2019-09-07 09:14 | US ---
Renal ultrasound: Multiple real-time images of the kidneys were obtained. Kidneys show no hydronephrosis or mass. Right kidney length is 12.0 cm and left kidney length is 11.0 cm. Aorta shows no aneurysm or stenosis. Impression: 1. No abnormality is identified on renal ultrasound study. Diagnostic code #1 This report was dictated in MDT
--- NOTE | 2019-09-07 09:14 | US ---
Renal arterial ultrasound: Duplex and color Doppler evaluation was obtained of the renal arteries. Comparison: No previous arterial imaging. Findings: Resisted indices are normal within both kidneys. Maximum systolic velocity measurement within the right renal artery is proximally at 1.44 m/s. Maximum systolic velocity measurement within the left renal artery is distally at 1.54 cm/s. Both renal veins are patent. Impression: 1. Findings which are within normal limits as described above. 2. Nothing is seen to indicate hemodynamic significant renal artery stenosis. Diagnostic code #1 This report was dictated in MDT
[2019-09-07] MEDS ORDERED: Alum Hydrox/Mag Hydrox/Simeth 30 ML, Lidocaine 2% 15 ML PO ONE ×2 (10:00)
[2019-09-07 10:41] LABS: HEMOGLOBIN A1C 5.7 % (4.50-6.20)
[2019-09-07] MEDS: Lisinopril 20 MG Tab PO SCH (20:41)
[2019-09-07] MEDS ORDERED: LORazepam 1 MG Tab PO SCH (21:00)
[2019-09-08] MEDS: Metoprolol Tartrate 25 MG Tab PO SCH (06:45)
[2019-09-08] MEDS: Nicotine 14 MG/24 Hr Patch TRDERM SCH (08:58)
[2019-09-08] MEDS: FLUoxetine 20 MG Cap PO SCH (14:16)
[2019-09-08] MEDS: LORazepam 1 MG Tab PO SCH ×2 (14:16→21:16)
--- NOTE | 2019-09-08 14:46 | PCM.PN ---
Addendum entered and electronically signed by Alejandro Celaya PA-C 09/08/19 15:29 : Nursing to obtain stop-bang questionnaire. Patient may have underlying MORGAN leading to worsening symptoms. Original Note: - General Info Date of Service: 09/08/19 Functional Status: Reports: Pain Controlled, Tolerating Diet, Ambulating, Urinating. Denies: New Symptoms - Review of Systems General: Reports: No Symptoms. Denies: Fever, Weakness, Fatigue, Malaise, Chills HEENT: Reports: No Symptoms. Denies: Headaches, Sore Throat Pulmonary: Reports: No Symptoms. Denies: Shortness of Breath, Pleuritic Chest Pain, Cough, Sputum, Wheezing Cardiovascular: Reports: No Symptoms. Denies: Chest Pain, Palpitations, Dyspnea on Exertion, Edema Gastrointestinal: Reports: No Symptoms. Denies: Abdominal Pain, Constipation, Diarrhea, Nausea, Vomiting Genitourinary: Reports: No Symptoms. Denies: Pain Musculoskeletal: Reports: No Symptoms Skin: Reports: No Symptoms. Denies: Cyanosis Neurological: Reports: No Symptoms. Denies: Difficulty Walking, Weakness, Gait Disturbance Psychiatric: Reports: Depression, Anxiety - Patient Data Vitals - Most Recent: Last Vital Signs Temp 98.4 F 09/08/19 12:24 Pulse 95 09/08/19 12:24 Resp 16 09/08/19 12:24 BP 122/81 09/08/19 12:24 Pulse Ox 98 09/08/19 14:00 Orthostatic Blood Pressure [ 130/76 Standing] Orthostatic Blood Pressure [ 136/76 Sitting] Orthostatic Blood Pressure [ 126/64 Supine] Weight - Most Recent: 195 lb 3.2 oz I&O - Last 24 Hours: Intake & Output 09/07/19 09/08/19 09/08/19 22:59 06:59 14:59 Intake Total 800 400 180 Output Total 1050 Balance -250 400 180 Lab Results Last 24 Hours: Laboratory Results - last 24 hr 09/06/19 09/08/19 09/08/19 Range/Units 19:00 05:30 13:45 WBC 10.04 H (4.23-9.07) K/mm3 RBC 5.21 (4.63-6.08) M/mm3 Hgb 14.7 (13.7-17.5) gm/dl Hct 43.8 (40.1-51.0) % MCV 84.1 (79.0-92.2) fl MCH 28.2 (25.7-32.2) pg MCHC 33.6 (32.2-35.5) g/dl RDW Std Deviation 40.5 (35.1-43.9) fL Plt Count 238 (163-337) K/mm3 MPV 10.8 (9.4-12.3) fl Percent Retic 0.91 (0.51-1.81) % Sodium 141 (136-145) mEq/L Potassium 3.9 (3.5-5.1) mEq/L Chloride 104 (98-107) mEq/L Carbon Dioxide 26 (21-32) mEq/L Anion Gap 14.9 (5-15) BUN 17 (7-18) mg/dL Creatinine 0.7 (0.7-1.3) mg/dL Est Cr Clr Drug Dosing 173.31 mL/min Estimated GFR (MDRD) > 60 (>60) mL/min BUN/Creatinine Ratio 24.3 H (14-18) Glucose 98 (74-106) mg/dL Calcium 9.3 (8.5-10.1) mg/dL Phosphorus 3.5 (2.6-4.7) mg/dL Magnesium 1.8 (1.8-2.4) mg/dl Iron (65-175) ug/dL TIBC (100-400) ug/dL % Saturation (20-55) % Transferrin (202-364) mg/dL Total Bilirubin 0.5 (0.2-1.0) mg/dL AST 24 (15-37) U/L ALT 47 (16-63) U/L Alkaline Phosphatase 109 (46-116) U/L Total Protein 8.2 (6.4-8.2) g/dl Albumin 4.4 (3.4-5.0) g/dl Globulin 3.8 gm/dL Albumin/Globulin Ratio 1.2 (1-2) Ur Collection Duration 24 hours Urine Total Volume 1550 mL Ur Creatinine 24 Hour 1.8 (0.95-2.49) gm/24hr Ur Creatinine Concen 115.6 (30-125) mg/dl Ur Sodium 24 Hour 144.15 (40-220) mEq/24h U Sodium Concentration 93 (40-220) mEq/L 09/08/19 Range/Units 13:45 WBC (4.23-9.07) K/mm3 RBC (4.63-6.08) M/mm3 Hgb (13.7-17.5) gm/dl Hct (40.1-51.0) % MCV (79.0-92.2) fl MCH (25.7-32.2) pg MCHC (32.2-35.5) g/dl RDW Std Deviation (35.1-43.9) fL Plt Count (163-337) K/mm3 MPV (9.4-12.3) fl Percent Retic (0.51-1.81) % Sodium (136-145) mEq/L Potassium (3.5-5.1) mEq/L Chloride (98-107) mEq/L Carbon Dioxide (21-32) mEq/L Anion Gap (5-15) BUN (7-18) mg/dL Creatinine (0.7-1.3) mg/dL Est Cr Clr Drug Dosing mL/min Estimated GFR (MDRD) (>60) mL/min BUN/Creatinine Ratio (14-18) Glucose (74-106) mg/dL Calcium (8.5-10.1) mg/dL Phosphorus (2.6-4.7) mg/dL Magnesium (1.8-2.4) mg/dl Iron 81 (65-175) ug/dL TIBC 311 (100-400) ug/dL % Saturation 26 (20-55) % Transferrin 249 (202-364) mg/dL Total Bilirubin (0.2-1.0) mg/dL AST (15-37) U/L ALT (16-63) U/L Alkaline Phosphatase (46-116) U/L Total Protein (6.4-8.2) g/dl Albumin (3.4-5.0) g/dl Globulin gm/dL Albumin/Globulin Ratio (1-2) Ur Collection Duration hours Urine Total Volume mL Ur Creatinine 24 Hour (0.95-2.49) gm/24hr Ur Creatinine Concen (30-125) mg/dl Ur Sodium 24 Hour (40-220) mEq/24h U Sodium Concentration (40-220) mEq/L Med Orders - Current: Current Medications Acetaminophen (Tylenol) 650 mg PO Q4H PRN PRN Reason: Pain (Mild 1-3)/fever Last Admin: 09/07/19 05:28 Dose: 650 mg Fluoxetine HCl (Prozac) 20 mg PO DAILY [facility] Stop: 09/10/19 09:01 Last Admin: 09/08/19 14:16 Dose: 20 mg Fluoxetine HCl (Prozac) 40 mg PO DAILY [facility] Lisinopril (Prinivil) 20 mg PO BEDTIME [facility] Last Admin: 09/07/19 20:41 Dose: 20 mg Lorazepam (Ativan) 2 mg PO BID [facility] Last Admin: 09/08/19 14:16 Dose: 2 mg Miscellaneous Information (Remove Patch) 0 ea TRDERM Q24H [facility] Last Admin: 09/08/19 08:59 Dose: 1 ea Nicotine (Habitrol) 14 mg TRDERM DAILY [facility] Last Admin: 09/08/19 08:58 Dose: 14 mg Ondansetron HCl (Zofran) 4 mg IV Q6H PRN PRN Reason: Nausea/Vomiting Sodium Chloride (Saline Flush) 10 ml FLUSH ASDIRECTED PRN PRN Reason: Keep Vein Open Discontinued Medications Al Hydroxide/Mg Hydroxide 30 (ml/ Lidocaine HCl 15 ml) 0 ml PO ONETIME ONE Stop: 09/07/19 10:01 Last Admin: 09/07/19 09:45 Dose: 45 ml Magnesium Sulfate 2 gm/ Premix 50 mls @ 25 mls/hr IV ONETIME ONE Stop: 09/06/19 16:11 Last Admin: 09/06/19 16:05 Dose: 25 mls/hr Influenza Virus Vaccine (Pharmacy To Dose - Influenza Vaccine) 0 each IM ONETIME ONE Stop: 09/06/19 16:33 Influenza Virus Vaccine (Fluzone Quad [id number] Syringe) 60 mcg IM .ONCE ONE Stop: 09/06/19 18:01 Lisinopril (Prinivil) 20 mg PO DAILY [facility] Lorazepam (Ativan) 1 mg PO BEDTIME [facility] Last Admin: 09/07/19 20:40 Dose: 1 mg Metoprolol Succinate (Toprol Xl) 50 mg PO DAILY [facility] Metoprolol Tartrate (Lopressor) 12.5 mg PO Q12H [facility] Last Admin: 09/08/19 06:45 Dose: 12.5 mg Metoprolol Tartrate (Lopressor) 12.5 mg PO DAILY [facility] - Exam Quality Assessment: DVT Prophylaxis General: Alert, Oriented, Cooperative, No Acute Distress HEENT: Pupils Equal, Pupils Reactive, Mucous Membr. Moist/[place] Neck: Supple, Trachea Midline Lungs: Clear to Auscultation, Normal Respiratory Effort Cardiovascular: Regular Rate, Regular Rhythm GI/Abdominal Exam: Normal Bowel Sounds, Soft, Non-Tender, No Distention (Male) Exam: Deferred Back Exam: Normal Inspection, Full Range of Motion Extremities: Normal Inspection, Normal Range of Motion, Non-Tender, No Pedal Edema, Normal Capillary Refill Skin: Warm, Dry, Intact Neurological: No New Focal Deficit Psy/Mental Status: Alert Sepsis Event Note - Evaluation Sepsis Screening Result: No Definite Risk - Focused Exam Vital Signs: Vital Signs Temp Pulse Resp BP Pulse Ox Pulse Ox 09/08/19 14:00 98 98 09/08/19 12:24 98.4 F 95 16 122/81 98 09/08/19 07:38 98.2 F 79 20 132/88 99 09/08/19 06:45 83 134/80 09/08/19 06:41 83 134/80 100 09/08/19 04:57 97.5 F 88 16 129/72 100 Date Exam was Performed: 09/08/19 Time Exam was Performed: 14:33 - Problem List & Annotations (1) History of atrial fibrillation SNOMED Code(s): 963369653 Code(s): Z86.79 - PERSONAL HISTORY OF OTHER DISEASES OF THE CIRCULATORY SYSTEM Status: Chronic Priority: High Current Visit: Yes (2) Resistant hypertension SNOMED Code(s): 13268901 Code(s): I10 - ESSENTIAL (PRIMARY) HYPERTENSION Status: Chronic Priority : High Current Visit: Yes (3) Current nicotine use SNOMED Code(s): 594932767 Code(s): Z72.0 - TOBACCO USE Status: Chronic Priority: Medium Current Visit: Yes (4) Anxiety SNOMED Code(s): 74119435 Code(s): F41.9 - ANXIETY DISORDER, UNSPECIFIED Status: Chronic Priority: Medium Current Visit: No (5) Chest pain SNOMED Code(s): 90468879 Code(s): R07.9 - CHEST PAIN, UNSPECIFIED Status: Resolved Priority: Medium Current Visit: Yes Qualifiers: Chest pain type: unspecified Qualified Code(s): R07.9 - Chest pain, unspecified (6) Near syncope SNOMED Code(s): 779191265 Code(s): R55 - SYNCOPE AND COLLAPSE Status: Acute Priority: High Current Visit: Yes (7) Hypomagnesemia SNOMED Code(s): 437956291 Code(s): E83.42 - HYPOMAGNESEMIA Status: Acute Priority: High Current Visit: Yes (8) Hyperlipidemia SNOMED Code(s): 51353130 Code(s): E78.5 - HYPERLIPIDEMIA, UNSPECIFIED Status: Acute Priority: High Current Visit: Yes Qualifiers: Hyperlipidemia type: unspecified Qualified Code(s): E78.5 - Hyperlipidemia , unspecified - Problem List Review Problem List Initiated/Reviewed/Updated: Yes - My Orders Last 24 Hours: My Active Orders 09/07/19 19:00 ALDOSTERONE, URINE Routine 09/07/19 21:00 lisinopriL [Prinivil] 20 mg PO BEDTIME 09/07/19 Dinner Heart Healthy Diet [DIET] 09/08/19 09:00 Remove Patch 0 ea TRDERM Q24H - Plan Plan:: Day of admission: Presented to ED with chest pain and near syncope History of resistant HTN on 3 medications, Reported A-fib Asymptomatic when evaluated in ED and on floor VS stable No ectopy on monitor Admitted observation status for near syncope work-up, resistant HTN workup. Day 1: Continues to feel good Reporting substernal chest pain that "Has been present for a long time": GI cocktail ordered Lipid panel shows high LDL, normal triglycerides and HDL Last BM - VS stable Adjusted home medications Awaiting urine results Magnesium supplemented Renal artery US normal Day 2: No complaints today Awaiting urine studies Discussed anxiety and depression with patient - agrees to Dr. Bowen consult VS stable Last BM yesterday No arrhythmias Likely discharge tomorrow History of atrial fibrillation Chest pain Near syncope Resistant hypertension Hypomagnesemia - Resolved Presented to ED with chest pain and suspected A-fib, near syncope Reports history of A-fib but unable to provide details On Metoprolol succinate, propranolol, lisinopril Unsure why on 2 beta blockers NSR on ED 12-lead EKG A1C 5.70% BP stable in ED Asymptomatic when brought to floor HR 66-99 since admission; BP 120-139/64-88 since admission Renal ultrasound shows no abnormalities Echo obtained with LVEF of 65-70% PLAN - Attempt to obtain old records - Discontinue Telemetry - Monitor electrolytes - Hold propranolol, Give lisinopril in PM - Discontinue metoprolol today after AM dose - Urine 24 hr metanephrines, Creatinine, sodium, aldosterone, aldosterone/renin ratio, catecholamines, a.m. plasma renin activity - Heart [employer] diet - Monitor vital signs - Will need to establish PCP locally - Prolactin pending Hyperlipidemia Lipid panel: Triglycerides 115, total cholesterol 236, LDL 167, HDL 44 PLAN - Stress lifestyle changes - Case Checker consult Current nicotine use 1/2 pack a day smoker PLAN - Nicotine patch - Cessation counseling Anxiety Depression Not on any medications TSH WNL PLAN - Monitor - Outpatient counseling - Agrees to Dr. Bowen consult today DVT Prophylaxis: Ambulate (VTE score of 1) GI Prophylaxis: Not indicated CODE STATUS: Full Code PCP: None - will need to establish DISPOSITION: Admitted to medical floor on telemetry for presyncopal work-up and work-up for resistant hypertension. Anticipated discharge tomorrow.
--- NOTE | 2019-09-08 18:57 | CONS ---
CONSULTING PHYSICIAN: Arnulfo Bowen MD DATE OF CONSULTATION: 09/08/2019 Site where the services are provided are [facility] in [place], [place]. Site where the services are provided from our offices in [facility]. Length of service for this 60-minute inpatient telemedicine event is 60 minutes. IDENTIFICATION: The patient is a 23-year-old male who is admitted to the inpatient Med/Surg Unit at [facility] in [place], [place]. He is seen for psychiatric consultation per the request of staff attending, Dr. Rosales, and her treatment team. CHIEF COMPLAINT: "I was having some really bad palpitations and the doc thought I was in AFib." HISTORY OF PRESENT ILLNESS: The patient is a 23-year-old male who was admitted to the inpatient Med/Surg Unit at [facility] in [place], [place], on 09/06/2019 for problems with syncope and tachycardia and questions of AFib. The patient is stating "I'm always afraid I'm going to ." The patient states he has been having these attacks "pretty much for the last 2 years" and he states he does not know what started causing these issues, but he is also noting "I'm always in a state of panic." He states he has a lot of anxiety. He denies any illicit substance use or excessive alcohol use complicating his clinical picture. He denies any caffeine intake at this point in time. He states he stays well hydrated. He states he gets about 5-6 hours of sleep per 24-hour period. He states "I sweat, my heart races" to the point where "I've lost a job over it" before. The patient also has lack of appetite. He does not know if it is a medical condition that is causing this or if it is psychiatric. He does not feel particularly depressed except insofar is this anxiety and panic are bothering him and bringing him down, but he states that if he can get this under control he feels that he would be doing really good. He denies any suicidal or homicidal. He denies any psychotic, delusional, or paranoid symptoms. He states that he was tried on Paxil 40 mg and then Celexa 10 mg in the past and then he also is most recently having a trial of Ativan as monotherapy and neither of these street medications have done anything for him really in his estimation, although he states he was able to tolerate the meds. He did not have any bad side effects from. He just feels that the meds were ineffective. MEDICATIONS: At time of presentation lorazepam 1 mg at bedtime. ALLERGIES: No known drug allergies. PAST MEDICAL HISTORY: The patient denies. REVIEW OF SYSTEMS: Aside from cardiac, which is being worked up, all other major organ systems are negative at this point in time for acute difficulties or complications. FAMILY PSYCHIATRIC AND CD HISTORY: The patient reports father also has a history of anxiety. PAST PSYCHIATRIC AND CD HISTORY: Essentially negative. The patient denies any previous psychiatric hospitalizations or chemical dependency treatments. He denies any previous suicide attempts or self-injurious behaviors. He denies any eating disorder history or any abuse issues while being raised. He has had past psychiatric medication trials of Paxil, Celexa, and Ativan, all as monotherapy and all of which have been largely ineffective. PRIMARY OUTPATIENT CARE PROVIDER: Dr. Farooq Carrillo at [place]. He had been seen recently at the [facility] in [place], [place], though he does report. SOCIAL HISTORY: The patient was born and raised in [place], [place]. He is the second of 3 siblings, having 2 sisters. The patient's parents when the patient was 3 years of age. He stayed with his dad after divorce. His father was a endoscopy technician. His mother ended up going to long term for attempted murder when he was around 5 years of age, so he did not have any contact with her after that. The patient's highest level of education is high school diploma. The patient works in the [employer] now. He is living in [place], [place], for the past few months after moving up from [place]. He has never been , not involved in any current relationships. He lives in [place] with his dad. He goes back and forth [facility] the [facility] as his dad is also working out in the [employer] now too. The patient denies any prior service or any current legal difficulties. He is Roman Catholic in terms of his sanchez formation. He enjoys going to the [employer] and hiking in his spare time. MENTAL STATUS EXAM: The patient is a 23-year-old soft-spoken white male in no apparent distress. Speech is of regular rate and rhythm. The patient is cognitively oriented. Psychomotor activity is within normal limits. There are no abnormal motor movements or tics observed. Gait and station are not observed. This patient is seated in chair during the inpatient consult. Mood is anxious. Affect is consistent with stated mood, but cooperative overall for the purposes of the inpatient consult. There is no behavioral or stated evidence of acute suicidal or homicidal ideation or acute psychotic, delusional, or paranoid symptoms. Thought processes are significant for racing thoughts or ruminations; however, there are no acute manic symptoms or loose associations evident. Judgment and insight appear unimpaired at this point in time. Motivation for help appears good. VITALS: 122/81, 95, 16, 98.5 degrees. IMPRESSION: [place] I: 1. Generalized anxiety disorder, F41.1. 2. Panic disorder without agoraphobic symptoms, F41. 3. Depression, not otherwise specified, F32.9. 4. Rule out major depressive disorder. 5. Rule out panic disorder with agoraphobic symptoms. [place] II: None. [place] III: Cardiac issues involving tachycardia, currently being worked up. [place] IV: Severe. [place] V: 55. PLAN: 1. Recommend beginning trial of Prozac 20 mg q.a.m. x3 days, increasing to 40 mg q.a.m. to help with symptoms of anxiety and panic and any depression. 2. Recommend increasing the patient's Ativan from 1 mg daily to 2 mg b.i.d. also for anxiety reduction and elimination of panic symptoms. 3. Would recommend a full thyroid workup to rule out any type of hypothyroid conditions that may be contributory or causative of the patient's current clinical presentation. 4. Also, recommend full blood workup to rule out any type of anemic conditions that could be contributory or exacerbating the patient's condition. 5. Recommend continued cardiac workup to rule out any cardiac issues that also may be involved in the patient's current clinical presentation. 6. Recommend the patient maintain good hydration status going forward to help with full function throughout the day. 7. The patient apprised benefits and side effects of his newly initiated and adjusted psychiatric medication regimen. He acknowledges understanding of these facts. Has no further questions by the end of interview session. 8. Recommend that the patient follow up with Outpatient Psychiatry when he is medically stabilized and discharged back to community stay within 2-3 weeks after discharge to assess his overall function efficacy of his newly initiated and adjusted psychiatric medication regimen. 9. We will follow up with the patient on an as-needed basis while he remains in the inpatient Med/Surg Unit at [facility] in [place], [place]. 10.Crisis plan is in place. VIJAY /[id number]
[2019-09-08] MEDS: Lisinopril 20 MG Tab PO SCH (21:16)
--- NOTE | 2019-09-09 08:07 | PCM.DCSUM1 ---
Discharge Summary - Hospital Course Free Text/Narrative:: Patient is a pleasant 23 yo male who was admitted to the medical floor with complaints of chest pain, dizziness and palpitations. Upon admission , patient was placed on telemetry and close monitoring. Initial EKG was NSR and by the time patient was transferred to the floor he was already asymptomatic. While in the hospital, patient remained stable and asymptomatic. Given his history of anxiety, he was consulted by Dr. Bowen in psychiatry who recommends starting oral Prozac and follow up in 2-3 weeks from hospital discharge in an outpatient basis. Otherwise, patient remains stable. Discussed with patient the importance of smoking cessation. We recommend to continue nicotine replacement patch daily, and home antihypertensive medications. Patient should re-establish care with PCP within 7 days of hospital for further care and management. He will be discharged from the hospital today in an improved and stable condition. Diagnosis: Stroke: No Modified Stephens Scale: No Symptoms at All Modified Hugh Scale Score: 0 - Discharge Data Discharge Date: 09/09/19 Discharge Disposition: Home, Self-Care 01 Condition: Good - Referral to Home Health Reason for Homebound Status: Improved and stable Primary Care Physician: PCP None - Discharge Diagnosis/Problem(s) (1) History of atrial fibrillation SNOMED Code(s): 388912501 ICD Code: Z86.79 - PERSONAL HISTORY OF OTHER DISEASES OF THE CIRCULATORY SYSTEM Status: Chronic Priority: High Current Visit: Yes (2) Resistant hypertension SNOMED Code(s): 47434126 ICD Code: I10 - ESSENTIAL (PRIMARY) HYPERTENSION Status: Chronic Priority : High Current Visit: Yes (3) Anxiety and depression SNOMED Code(s): 105408699 ICD Code: F41.9 - ANXIETY DISORDER, UNSPECIFIED; F32.9 - MAJOR DEPRESSIVE DISORDER, SINGLE EPISODE, UNSPECIFIED Status: Chronic Priority: Medium Current Visit: Yes (4) Current nicotine use SNOMED Code(s): 345242315 ICD Code: Z72.0 - TOBACCO USE Status: Chronic Priority: Medium Current Visit: Yes (5) Hyperlipidemia SNOMED Code(s): 53307190 ICD Code: E78.5 - HYPERLIPIDEMIA, UNSPECIFIED Status: Chronic Priority: Medium Current Visit: Yes Qualifiers: Hyperlipidemia type: moderate mixed hyperlipidemia not requiring statin therapy Qualified Code(s): E78.2 - Mixed hyperlipidemia - Patient Summary/Data Consults: Consultations 09/07/19 09:46 Consult to Dietary [Consult to Scale Shooter] [CONS] Routine - Patient Instructions Diet: Heart Healthy Diet Activity: As Tolerated Driving: May Drive Today Showering/Bathing: May Shower Notify Provider of: Fever, Increased Pain, Swelling and Redness, Drainage, Nausea and/or Vomiting - Discharge Plan *PRESCRIPTION DRUG MONITORING PROGRAM REVIEWED*: Not Applicable *COPY OF PRESCRIPTION DRUG MONITORING REPORT IN PATIENT ALISHA: Not Applicable Prescriptions/Med Rec: FLUoxetine [PROzac] 10 mg PO DAILY 3 Days #6 tab FLUoxetine [PROzac] 40 mg PO DAILY 30 Days #30 cap Home Medications: Home Meds Metoprolol Succinate 50 mg PO DAILY 09/06/19 [History] lisinopriL [Lisinopril] 20 mg PO DAILY 09/06/19 [History] LORazepam [Ativan] 1 mg PO BID 09/08/19 [History] FLUoxetine [PROzac] 10 mg PO DAILY 3 Days #6 tab 09/09/19 [Rx] FLUoxetine [PROzac] 40 mg PO DAILY 30 Days #30 cap 09/09/19 [Rx] LORazepam [Ativan] 2 mg PO BID tablet 09/09/19 [Rx] Nicotine [Habitrol] 14 mg TRDERM DAILY patch 09/09/19 [Rx] lisinopriL [Prinivil] 20 mg PO BEDTIME tablet 09/09/19 [Rx] Oxygen Therapy Mode: Room Air Patient Handouts: Steps to Quit Smoking Forms: ED Department Discharge Referrals: Arnulfo Bowen MD [Physician] - (attempted to call for appt. message left. Please have the patietn call [phone] to schedule outpatient appt. for 3-4 weeks out.) Agustina Fox NP [Nurse Practitioner] - 09/15/19 9:00 am (This is to establish care and also follow up from hospital visit. Please arrive at 9:00 appt. time is at 9:30.) - Discharge Summary/Plan Comment DC Time >30 min.: No Discharge Summary/Plan Comment: Patient is a pleasant 23 yo male who was admitted to the medical floor with complaints of chest pain, dizziness and palpitations. Upon admission , patient was placed on telemetry and close monitoring. Initial EKG was NSR and by the time patient was transferred to the floor he was already asymptomatic. While in the hospital, patient remained stable and asymptomatic. Given his history of anxiety, he was consulted by Dr. Bowen in psychiatry who recommends starting oral Prozac and follow up in 2-3 weeks from hospital discharge in an outpatient basis. Otherwise, patient remains stable. Discussed with patient the importance of smoking cessation. We recommend to continue nicotine replacement patch daily, and home antihypertensive medications. Patient should re-establish care with PCP within 7 days of hospital for further care and management. He will be discharged from the hospital today in an improved and stable condition. - Patient Data Vitals - Most Recent: Last Vital Signs Temp 97.9 F 09/09/19 04:20 Pulse 80 09/09/19 04:20 Resp 12 09/09/19 04:20 BP 134/76 09/09/19 04:20 Pulse Ox 100 09/09/19 04:20 Orthostatic Blood Pressure [ 130/76 Standing] Orthostatic Blood Pressure [ 136/76 Sitting] Orthostatic Blood Pressure [ 126/64 Supine] Weight - Most Recent: 194 lb 12.8 oz I&O - Last 24 hours: Intake & Output 09/08/19 09/09/19 09/09/19 22:59 06:59 14:59 Intake Total 1040 800 Balance 1040 800 Lab Results - Last 24 hrs: Laboratory Results - last 24 hr 09/07/19 09/08/19 09/08/19 Range/Units 04:30 13:45 13:45 WBC 10.04 H (4.23-9.07) K/mm3 RBC 5.21 (4.63-6.08) M/mm3 Hgb 14.7 (13.7-17.5) gm/dl Hct 43.8 (40.1-51.0) % MCV 84.1 (79.0-92.2) fl MCH 28.2 (25.7-32.2) pg MCHC 33.6 (32.2-35.5) g/dl RDW Std Deviation 40.5 (35.1-43.9) fL Plt Count 238 (163-337) K/mm3 MPV 10.8 (9.4-12.3) fl Neut % (Auto) (34.0-67.9) % Lymph % (Auto) (21.8-53.1) % [place] % (Auto) (5.3-12.2) % Eos % (Auto) (0.8-7.0) Baso % (Auto) (0.1-1.2) % Neut # (Auto) (1.78-5.38) K/mm3 Lymph # (Auto) (1.32-3.57) K/mm3 [place] # (Auto) (0.30-0.82) K/mm3 Eos # (Auto) (0.04-0.54) K/mm3 Baso # (Auto) (0.01-0.08) K/mm3 Neutrophils % (Manual) 65 H (40-60) % Band Neutrophils % 0 (0-10) % Lymphocytes % (Manual) 28 (20-40) % Atypical Lymphs % 0 % Monocytes % (Manual) 4 (2-10) % Eosinophils % (Manual) 3 (0.8-7.0) % Basophils % (Manual) 0 L (0.2-1.2) Platelet Estimate Adequate Plt Morphology Comment Normal RBC Morph Comment Normal Percent Retic 0.91 (0.51-1.81) % Iron 81 (65-175) ug/dL TIBC 311 (100-400) ug/dL % Saturation 26 (20-55) % Transferrin 249 (202-364) mg/dL Vitamin B12 649 (193-986) pg/ml Folate 28.4 (8.6-58.9) ng/mL Prolactin 4.1 (2.6-13.1) ng/mL 09/09/19 Range/Units 06:32 WBC 7.42 (4.23-9.07) K/mm3 RBC 5.37 (4.63-6.08) M/mm3 Hgb 15.4 (13.7-17.5) gm/dl Hct 45.3 (40.1-51.0) % MCV 84.4 (79.0-92.2) fl MCH 28.7 (25.7-32.2) pg MCHC 34.0 (32.2-35.5) g/dl RDW Std Deviation 41.2 (35.1-43.9) fL Plt Count 232 (163-337) K/mm3 MPV 10.9 (9.4-12.3) fl Neut % (Auto) 57.4 (34.0-67.9) % Lymph % (Auto) 28.2 (21.8-53.1) % [place] % (Auto) 10.1 (5.3-12.2) % Eos % (Auto) 2.8 (0.8-7.0) Baso % (Auto) 0.8 (0.1-1.2) % Neut # (Auto) 4.26 (1.78-5.38) K/mm3 Lymph # (Auto) 2.09 (1.32-3.57) K/mm3 [place] # (Auto) 0.75 (0.30-0.82) K/mm3 Eos # (Auto) 0.21 (0.04-0.54) K/mm3 Baso # (Auto) 0.06 (0.01-0.08) K/mm3 Neutrophils % (Manual) (40-60) % Band Neutrophils % (0-10) % Lymphocytes % (Manual) (20-40) % Atypical Lymphs % % Monocytes % (Manual) (2-10) % Eosinophils % (Manual) (0.8-7.0) % Basophils % (Manual) (0.2-1.2) Platelet Estimate Plt Morphology Comment RBC Morph Comment Percent Retic (0.51-1.81) % Iron (65-175) ug/dL TIBC (100-400) ug/dL % Saturation (20-55) % Transferrin (202-364) mg/dL Vitamin B12 (193-986) pg/ml Folate (8.6-58.9) ng/mL Prolactin (2.6-13.1) ng/mL Med Orders - Current: Current Medications Acetaminophen (Tylenol) 650 mg PO Q4H PRN PRN Reason: Pain (Mild 1-3)/fever Last Admin: 09/07/19 05:28 Dose: 650 mg Fluoxetine HCl (Prozac) 20 mg PO DAILY PENDING SALE TO [facility] Stop: 09/10/19 09:01 Last Admin: 09/08/19 14:16 Dose: 20 mg Fluoxetine HCl (Prozac) 40 mg PO DAILY PENDING SALE TO [facility] Lisinopril (Prinivil) 20 mg PO BEDTIME PENDING SALE TO [facility] Last Admin: 09/08/19 21:16 Dose: 20 mg Lorazepam (Ativan) 2 mg PO BID PENDING SALE TO [facility] Last Admin: 09/08/19 21:16 Dose: 2 mg Miscellaneous Information (Remove Patch) 0 ea TRDERM Q24H PENDING SALE TO [facility] Last Admin: 09/08/19 08:59 Dose: 1 ea Nicotine (Habitrol) 14 mg TRDERM DAILY PENDING SALE TO [facility] Last Admin: 09/08/19 08:58 Dose: 14 mg Ondansetron HCl (Zofran) 4 mg IV Q6H PRN PRN Reason: Nausea/Vomiting Sodium Chloride (Saline Flush) 10 ml FLUSH ASDIRECTED PRN PRN Reason: Keep Vein Open Discontinued Medications Al Hydroxide/Mg Hydroxide 30 (ml/ Lidocaine HCl 15 ml) 0 ml PO ONETIME ONE Stop: 09/07/19 10:01 Last Admin: 09/07/19 09:45 Dose: 45 ml Magnesium Sulfate 2 gm/ Premix 50 mls @ 25 mls/hr IV ONETIME ONE Stop: 09/06/19 16:11 Last Admin: 09/06/19 16:05 Dose: 25 mls/hr Influenza Virus Vaccine (Pharmacy To Dose - Influenza Vaccine) 0 each IM ONETIME ONE Stop: 09/06/19 16:33 Influenza Virus Vaccine (Fluzone Quad Syringe) 60 mcg IM .ONCE ONE Stop: 09/06/19 18:01 Lisinopril (Prinivil) 20 mg PO DAILY PENDING SALE TO [facility] Lorazepam (Ativan) 1 mg PO BEDTIME PENDING SALE TO [facility] Last Admin: 09/07/19 20:40 Dose: 1 mg Metoprolol Succinate (Toprol Xl) 50 mg PO DAILY PENDING SALE TO [facility] Metoprolol Tartrate (Lopressor) 12.5 mg PO Q12H PENDING SALE TO [facility] Last Admin: 09/08/19 06:45 Dose: 12.5 mg Metoprolol Tartrate (Lopressor) 12.5 mg PO DAILY PENDING SALE TO [facility]
[2019-09-09] MEDS: LORazepam 1 MG Tab PO SCH (08:12)
[2019-09-09] MEDS: FLUoxetine 20 MG Cap PO SCH (08:12)
[2019-09-09] MEDS: Nicotine 14 MG/24 Hr Patch TRDERM SCH (08:13)
[2019-09-09] MEDS ORDERED: Metoprolol Tartrate 25 MG Tab PO SCH (09:00)
[2019-09-09] MEDS ORDERED: FLU Vacc QS2019-20(6MOS+)/PF 60 MCG/0.5 ML SYRINGE IM ONE (09:30)
[2019-09-11] MEDS ORDERED: FLUoxetine 20 MG Cap PO SCH (09:00)
== END 2019-09-09 09:38 | disposition home or self-care (01) ==
LOC: JD.ED 11:18 → JD.MS 14:07 → INTOOBSV 14:07 → JD.MS 14:51
PROVIDERS: ADMIT Internal Medicine; ATTEND Internal Medicine
DX: R07.2 Precordial pain (principal); R55 Syncope and collapse; R00.0 Tachycardia, unspecified; F17.210 Nicotine dependence, cigarettes, uncomplicated; E83.42 Hypomagnesemia; E78.00 Pure hypercholesterolemia, unspecified; I10 Essential (primary) hypertension; E78.5 Hyperlipidemia, unspecified; F41.1 Generalized anxiety disorder; Z86.79 Personal history of other diseases of the circulatory system; Z79.899 Other long term (current) drug therapy
CPT/HCPCS: 36415; 71045; 76775; 80053; 80061; 80306; 81001; 82088; 82384; 82570; 82607; 82746; 83036; 83540; 83735; 83835; 84100; 84146; 84244; 84300; 84443; 84466; 84484; 84550; 85007; 85025; 85027; 85045; 85610; 85730; 90471; 90686; 93005; 93306; 93976; 99285; A9270; J3475; Q3014; 93010; 96365; 96366; G0008; G0378

== ENCOUNTER 2019-09-24 21:34 | Emergency (ER) | payer BC ==
--- NOTE | 2019-09-24 22:06 | EDM.PDOC ---
ED HPI GENERAL MEDICAL PROBLEM - General Chief Complaint: Chest Pain Stated Complaint: CHEST PAIN Time Seen by Provider: 09/24/19 21:46 Source of Information: Reports: Patient History Limitations: Reports: No Limitations - History of Present Illness INITIAL COMMENTS - FREE TEXT/NARRATIVE: Mr. Jones is a pleasant 23-year-old man with a past medical history significant for hypertension and anxiety, who now presents the ED stating that he developed sudden-onset sharp retrosternal chest pain and dyspnea around 19: 00 this evening, when he developed a panic attack. He states that he has been experiencing these same symptoms about twice a month for the past 2 years. He states that he has been medically evaluated approximately 30 times, always with a negative work-up. Even though his symptoms are the same tonight as previously , he states that he came because "I just want to get checked out." The patient states that he was seen by a Physical Security Specialist in [place], and underwent a cardiac stress test in early 2018, which was negative. The patient' s chart indicates that he may have a history of paroxysmal atrial fibrillation, but when I asked him about that, he stated that on one occasion in [place], a conveyor monitor showed some sort of abnormality, but that no ECG has documented atrial fibrillation, and he states that he was never placed on a chronotropic medication or an anticoagulant. The patient states that he is ordinarily on lisinopril, fluoxetine, and lorazepam 2 mg po BID, but that he misplaced his medications this past Wednesday, . Here in the ED, the patient's initial BP is found to be elevated at 169/102 with a HR of 111. He is otherwise afebrile, saturating 98% on room air. The patient denies recent fever, chills, sore throat, ear pain, nasal or sinus congestion, cough, dyspnea, chest pain, palpitations, nausea, vomiting, constipation, diarrhea, abdominal pain, urinary symptoms, recent weight gain or weight loss, recent bloody bowel movements or black bowel movements, recent joint aches, headaches, or rashes. The patient's PCP is Agustina Fox NP. - Related Data Allergies Allergy/AdvReac Type Severity Reaction Status Date / Time No Known Allergies Allergy Verified 09/24/19 21:46 Home Meds: Home Meds FLUoxetine [PROzac] 10 mg PO DAILY 3 Days #6 tab 09/09/19 [Rx] FLUoxetine [PROzac] 40 mg PO DAILY 30 Days #30 cap 09/09/19 [Rx] LORazepam [Ativan] 2 mg PO BID 09/24/19 [History] lisinopriL [Lisinopril] 30 mg PO DAILY 09/24/19 [History] Past Medical History Cardiovascular History: Reports: Hypertension Psychiatric History: Reports: Anxiety, Panic Attack Social & Family History - Family History Family Medical History: Noncontributory - Tobacco Use Smoking Status *Q: Current Every Day Smoker Years of Tobacco use: 8 Packs/Tins Daily: 0.5 Packs/Tins Daily Comment: Down from 1 ppd - Caffeine Use Caffeine Use: Reports: None Caffeine Use Comment: states he drinks occasional coffee - Alcohol Use Alcohol Use History: No - Recreational Drug Use Recreational Drug Use: Yes Drug Use in Last 12 Months: No Recreational Drug Type: Reports: Marijuana/Hashish (last smoked when 16 yrs old) - Living Situation & Occupation Living situation: Reports: Single, with Family Occupation: Unemployed ED ROS GENERAL - Review of Systems Review Of Systems: Comprehensive ROS is negative, except as noted in HPI. ED EXAM, GENERAL - Physical Exam Exam: See Below Exam Limited By: No Limitations General Appearance: Alert, WD/WN, No Apparent Distress, Anxious Eye Exam: Bilateral Eye: EOMI, Normal Inspection Ears: Normal External Exam, Hearing Grossly Normal Nose: Normal Inspection Throat/Mouth: Normal Inspection, Normal Lips, Normal Voice, No Airway Compromise Head: Atraumatic, Normocephalic Neck: Normal Inspection, Full Range of Motion Respiratory/Chest: No Respiratory Distress, Lungs Clear, Normal Breath Sounds, No Accessory Muscle Use. No: Decreased Breath Sounds, Crackles, Rhonchi, Wheezing, Stridor, Prolonged Expiration Cardiovascular: Normal Peripheral Pulses, Regular Rate, Rhythm, No Edema, No Gallop, No JVD, No Murmur, No Rub Peripheral Pulses: 4+: Radial (L), Radial (R) GI/Abdominal: Normal Bowel Sounds, Soft, Non-Tender, No Organomegaly, No Distention, No Abnormal Bruit, No Mass (Male) Exam: Deferred Rectal (Males) Exam: Deferred Back Exam: Normal Inspection, Full Range of Motion, NT Extremities: Normal Inspection, Normal Range of Motion, No Pedal Edema, Normal Capillary Refill Neurological: Alert, Oriented, Normal Cognition, No Motor/Sensory Deficits Psychiatric: Anxious Skin Exam: Warm, Dry, Intact, Normal Color, No Rash EKG INTERPRETATION EKG Date: 09/24/19 Time: 22:06 Rhythm: NSR Rate (Beats/Min): 76 [place]: Normal P-Wave: Present QRS: Normal ST-T: Normal QT: Normal Comparison: No Change (09/06/2019) Course - Vital Signs Last Recorded V/S: Last Vital Signs Temp 37.3 C 09/24/19 21:43 Pulse 111 H 09/24/19 21:43 Resp 16 09/24/19 21:43 BP 169/102 H 09/24/19 21:43 Pulse Ox 98 09/24/19 21:43 - Orders/Labs/Meds Orders: Active Orders 24 hr Category Date Time Status EKG Documentation Completion [RC] STAT Care 09/24/19 21:54 Active Chest 2V [CR] Stat Exams 09/24/19 22:02 Taken Labs: Laboratory Tests 09/24/19 09/24/19 09/24/19 Range/Units 22:22 22:22 22:22 WBC 6.53 (4.23-9.07) K/mm3 RBC 5.10 (4.63-6.08) M/mm3 Hgb 14.6 (13.7-17.5) gm/dl Hct 43.9 (40.1-51.0) % MCV 86.1 (79.0-92.2) fl MCH 28.6 (25.7-32.2) pg MCHC 33.3 (32.2-35.5) g/dl RDW Std Deviation 43.5 (35.1-43.9) fL Plt Count 234 (163-337) K/mm3 MPV 10.7 (9.4-12.3) fl Neutrophils % (Manual) 49 (40-60) % Band Neutrophils % 0 (0-10) % Lymphocytes % (Manual) 41 H (20-40) % Atypical Lymphs % 0 % Monocytes % (Manual) 8 (2-10) % Eosinophils % (Manual) 2 (0.8-7.0) % Basophils % (Manual) 0 L (0.2-1.2) Platelet Estimate Adequate RBC Morph Comment Normal D-Dimer, Quantitative < 0.19 L (0.19-0.50) mg/L Sodium 140 (136-145) mEq/L Potassium 3.9 (3.5-5.1) mEq/L Chloride 104 (98-107) mEq/L Carbon Dioxide 26 (21-32) mEq/L Anion Gap 13.9 (5-15) BUN 13 (7-18) mg/dL Creatinine 0.8 (0.7-1.3) mg/dL Est Cr Clr Drug Dosing 147.01 mL/min Estimated GFR (MDRD) > 60 (>60) mL/min BUN/Creatinine Ratio 16.3 (14-18) Glucose 100 (74-106) mg/dL Calcium 8.7 (8.5-10.1) mg/dL Magnesium (1.8-2.4) mg/dl Total Bilirubin 0.2 (0.2-1.0) mg/dL AST 20 (15-37) U/L ALT 34 (16-63) U/L Alkaline Phosphatase 94 (46-116) U/L Troponin I < 0.017 (0.00-0.056) ng/mL Total Protein 7.7 (6.4-8.2) g/dl Albumin 4.2 (3.4-5.0) g/dl Globulin 3.5 gm/dL Albumin/Globulin Ratio 1.2 (1-2) 05/17/20 Range/Units 22:22 WBC (4.23-9.07) K/mm3 RBC (4.63-6.08) M/mm3 Hgb (13.7-17.5) gm/dl Hct (40.1-51.0) % MCV (79.0-92.2) fl MCH (25.7-32.2) pg MCHC (32.2-35.5) g/dl RDW Std Deviation (35.1-43.9) fL Plt Count (163-337) K/mm3 MPV (9.4-12.3) fl Neutrophils % (Manual) (40-60) % Band Neutrophils % (0-10) % Lymphocytes % (Manual) (20-40) % Atypical Lymphs % % Monocytes % (Manual) (2-10) % Eosinophils % (Manual) (0.8-7.0) % Basophils % (Manual) (0.2-1.2) Platelet Estimate RBC Morph Comment D-Dimer, Quantitative (0.19-0.50) mg/L Sodium (136-145) mEq/L Potassium (3.5-5.1) mEq/L Chloride (98-107) mEq/L Carbon Dioxide (21-32) mEq/L Anion Gap (5-15) BUN (7-18) mg/dL Creatinine (0.7-1.3) mg/dL Est Cr Clr Drug Dosing mL/min Estimated GFR (MDRD) (>60) mL/min BUN/Creatinine Ratio (14-18) Glucose (74-106) mg/dL Calcium (8.5-10.1) mg/dL Magnesium 1.5 L (1.8-2.4) mg/dl Total Bilirubin (0.2-1.0) mg/dL AST (15-37) U/L ALT (16-63) U/L Alkaline Phosphatase (46-116) U/L Troponin I (0.00-0.056) ng/mL Total Protein (6.4-8.2) g/dl Albumin (3.4-5.0) g/dl Globulin gm/dL Albumin/Globulin Ratio (1-2) Meds: Medications Discontinued Medications Generic Name Dose Route Start Last Admin Trade Name Freq PRN Reason Stop Dose Admin Magnesium Sulfate 2 gm/ Premix 50 mls @ 25 mls/hr 09/24/19 22:53 09/24/19 23: 07 IV 09/25/19 00:52 25 mls/hr ONETIME ONE Administration - Re-Assessments/Exams Free Text/Narrative Re-Assessment/Exam: 09/24/19 22:03 As above, the patient developed dyspnea and sharp, sudden-onset retrosternal chest pain when he developed a panic attack around 19:00 this evening. He states that his symptoms are the same as he has had countless times in the past in which he has had, by his own estimation, evaluated in an emergency department about 30 times previously, always with a negative work-up. I have no reason to suspect that his work-up will be otherwise tonight. I have ordered blood work, a chest x-ray, and an ECG. 09/24/19 22:36 Two-view chest radiograph appears to be grossly normal. The cardiac silhouette is within normal limits. No pulmonary vascular congestion. No pleural effusions. No focal infiltrate. No pneumothorax. Formal read per the Radiologist pending. 09/24/19 22:53 The patient's CBC is unremarkable. His CMP is unremarkable. His magnesium level is depressed at 1.5. His troponin is undetectably low. His D-dimer is undetectably low. Based on the above, I have ordered a 2 g Mg-rider. 09/25/19 01:27 The patient's Mg-rider has finished infusing. Test results discussed with the patient. He states that he is feeling better. I will discharge him home. Departure - Departure Time of Disposition: 01:27 Disposition: Home, Self-Care 01 Condition: Good Clinical Impression: Anxiety - Discharge Information *PRESCRIPTION DRUG MONITORING PROGRAM REVIEWED*: Not Applicable *COPY OF PRESCRIPTION DRUG MONITORING REPORT IN PATIENT ALISHA: Not Applicable Instructions: Hypomagnesemia, Living With Anxiety Referrals: Agustina Fox NP [Nurse Practitioner] - Forms: ED Department Discharge Additional Instructions: You were seen in the emergency room after developing shortness of breath and chest pain associated with anxiety. Work-up in the ER included blood work, a chest x-ray, and an ECG. Your work-up found your magnesium level to be low at 1.5. You were given IV replacement magnesium. The remainder of your work-up was unremarkable. You have not suffered a heart attack. You do not have a blood clot in your lungs. You do not have pneumonia. You do not have a collapsed lung. Based on your history, physical exam, and ER tests, the cause of your symptoms was almost certainly due to an anxiety attack. We recommend that you follow-up with your PCP, Agustina Fox NP, for further evaluation and treatment. If any other problems, please do not hesitate to return to the ER. Sepsis Event Note - Evaluation Sepsis Screening Result: No Definite Risk - Focused Exam Vital Signs: Vital Signs Temp Pulse Resp BP Pulse Ox 09/24/19 21:43 37.3 C 111 H 16 169/102 H 98 Date Exam was Performed: 09/25/19 Time Exam was Performed: 01:43 - My Orders Last 24 Hours: My Active Orders 09/24/19 21:54 EKG Documentation Completion [RC] STAT 09/24/19 22:02 Chest 2V [CR] Stat - Assessment/Plan Last 24 Hours: My Active Orders 09/24/19 21:54 EKG Documentation Completion [RC] STAT 09/24/19 22:02 Chest 2V [CR] Stat
[2019-09-24] MEDS ORDERED: Magnesium Sulfate/Water 2 GM in Premix Bag 1 BAG IV ONE (22:53)
--- NOTE | 2019-09-25 13:34 | CR ---
Chest: 2 views of the chest were obtained. Comparison: No prior chest imaging is available. Heart size and mediastinum are normal. Lungs are clear with no acute parenchymal change. Bony structures are unremarkable. Impression: 1. Nothing acute is seen on 2 view chest x-ray. Diagnostic code #1 This report was dictated in MDT
== END 2019-09-25 01:40 | disposition home or self-care (01) ==
LOC: JD.ED 21:34
DX: F41.9 Anxiety disorder, unspecified (principal); I10 Essential (primary) hypertension; F17.210 Nicotine dependence, cigarettes, uncomplicated; Z79.899 Other long term (current) drug therapy
CPT/HCPCS: 36415; 71046; 80053; 83735; 84484; 85007; 85027; 85379; 93005; 96365; 96366; 99285; J3475; 93010; 99282